=== PATIENT | female | born 1985 | race Caucasian/White ===

== ENCOUNTER 2019-08-03 13:46 | Emergency (ER) | payer OTHER ==
[2019-08-03 14:46] LABS: Urine Blood 3+ (NEG); Urine Glucose NEGATIVE (NEG); Urine Protein NEGATIVE (NEG)
[2019-08-03 15:22] LABS: Absolute Lymphocytes (CBC) 2.2 K/uL (0.7-4.9); Basophils % 0.6 % (0-1.3); Hematocrit 36.5 % (36.0-45.0); Lymphocytes % 28.5 % (15.3-44.8); MPV 6.8 fL (7.6-11.3); RBC Red Blood Cell Count 3.75 M/uL (3.86-4.86)
[2019-08-03] MEDS ORDERED: NA CHLORIDE 0.9% 500 ML ONE (15:31)
[2019-08-03 15:39] LABS: ALT/SGPT 19 U/L (12-78); AST/SGOT 14 U/L (15-37); Albumin 3.2 g/dL (3.4-5.0); Alkaline Phosphatase 67 U/L (45-117); BUN Blood Urea Nitrogen 11 mg/dL (7-18); Bicarbonate 28 mmol/L (21-32); Bilirubin Direct < 0.1 mg/dL (0-0.2); Bilirubin Total 0.2 mg/dL (0.2-1.0); Glucose Level 90 mg/dL (74-106); Lipase 108 U/L (73-393); Potassium 3.9 mmol/L (3.5-5.1); Protein, Total 6.9 g/dL (6.4-8.2); Sodium Level 139 mmol/L (136-145)
--- NOTE | 2019-08-03 18:01 | EDPHYS ---
Physician Documentation [facility] Name: Samara Diego Age: 33 yrs Sex: Female : 1985 Arrival Date: 08/03/2019 Time: 13:49 Bed 12 Private MD: ED Physician Ramon Chacon HPI: 08/03 07:18 This 33 yrs old Female presents to ER via Ambulatory with complaints of kdr Fever, High Blood Pressure, Leg Pain. 07:18 The patient reports fever, that was measured at 101 degrees Fahrenheit. Onset: The kdr symptoms/episode began/occurred yesterday. Modifying factors: Recent medications: acetaminophen. Associated signs and symptoms: Pertinent positives: arthralgias, chills. Severity of symptoms: At their worst the symptoms were mild just prior to arrival, in the emergency department the symptoms are unchanged. The patient has not experienced similar symptoms in the past. The patient has been recently seen by a physician: The patient is five weeks post and had mastitis for which she was treated with Augmentin. Historical: - Allergies: 08/02 14:31 No Known Allergies; ls4 - PMHx: 14:31 None; ls4 - Immunization history:: Adult Immunizations up to date, Flu vaccine is not up to date. - Social history:: Smoking status: Patient reports the use of cigarette tobacco products, smokes one pack cigarettes per day. ROS: 08/03 07:18 Constitutional: Negative for weight loss - has had fever and chillswith genrlized kdr myalgias Eyes: Negative for injury, pain, redness, and discharge, ENT: Negative for injury, pain, and discharge, Neck: Negative for injury, pain, and swelling, Cardiovascular: Negative for chest pain, palpitations, and edema, Respiratory: Negative for shortness of breath, cough, wheezing, and pleuritic chest pain, Abdomen/GI: Negative for abdominal pain, nausea, vomiting, diarrhea, and constipation, Back: Negative for injury and pain, : Negative for injury, bleeding, discharge, and swelling, MS/Extremity: Negative for injury and deformity, Skin: Negative for injury, rash, and discoloration, Neuro: Negative for headache, weakness, numbness, tingling, and seizure activity. Psych: Negative for depression, anxiety, suicide ideation, homicidal ideation, and hallucinations, Allergy/Immunology: Negative for hives, rash, and allergies, Endocrine: Negative for neck swelling, polydipsia, polyuria, polyphagia, and marked weight changes, Hematologic/Lymphatic: Negative for swollen nodes, abnormal bleeding, and unusual bruising. Exam: 07:18 Constitutional: This is a well developed, well nourished patient who is awake, alert, kdr and in no acute distress. Head/Face: Normocephalic, atraumatic. Eyes: Pupils equal round and reactive to light, extra-ocular motions intact. Lids and lashes normal. Conjunctiva and sclera are non-icteric and not injected. Cornea within normal limits. Periorbital areas with no swelling, redness, or edema. Neck: Trachea midline, no thyromegaly or masses palpated, and no cervical lymphadenopathy. Supple, full range of motion without nuchal rigidity, or vertebral point tenderness. No Meningismus. Chest/axilla: Normal chest wall appearance and motion. Nontender with no deformity. No lesions are appreciated. Cardiovascular: Regular rate and rhythm with a normal S1 and S2. No gallops, murmurs, or rubs. Normal PMI, no JVD. No pulse deficits. Respiratory: Lungs have equal breath sounds bilaterally, clear to auscultation and percussion. No rales, rhonchi or wheezes noted. No increased work of breathing, no retractions or nasal flaring. Abdomen/GI: Soft, non-tender, with normal bowel sounds. No distension or tympany. No guarding or rebound. No evidence of tenderness throughout. Back: No spinal tenderness. No costovertebral tenderness. Full range of motion. Skin: Warm, dry with normal turgor. Normal color with no rashes, no lesions, and no evidence of cellulitis. MS/ Extremity: Pulses equal, no cyanosis. Neurovascular intact. Full, normal range of motion. Neuro: Awake and alert, GCS 15, oriented to person, place, time, and situation. Cranial nerves II-XII grossly intact. Motor strength 5/5 in all extremities. Sensory grossly intact. Cerebellar exam normal. Normal gait. Psych: Awake, alert, with orientation to person, place and time. Behavior, mood, and affect are within normal limits. Vital Signs: 08/02 14:26 BP 131 / 78; Pulse 74; Resp 13; Temp 98.1(O); Pulse Ox 100% on R/A; Weight 68.04 kg; ls4 Height 5 ft. 3 in. (160.02 cm); Pain 7/10; 17:00 BP 129 / 78; Pulse 71; Resp 14; Temp 98.2(O); Pulse Ox 100% on R/A; Pain 0/10; ls4 14:26 Body Mass Index 26.57 (68.04 kg, 160.02 cm) ls4 MDM: 17:59 Patient medically screened. [facility] 08/03 07:18 Data reviewed: vital signs, nurses notes, lab test result(s). Counseling: I had a kdr detailed discussion with the patient and/or guardian regarding: the historical points, exam findings, and any diagnostic results supporting the discharge/admit diagnosis, lab results, the need for outpatient follow up. Special discussion: I discussed with the patient/guardian in detail that at this point there is no indication for admission to the hospital. It is understood, however, that if the symptoms persist or worsen the patient needs to return immediately for re-evaluation. 08/02 14:42 Order name: Urine Dipstick--Ancillary (enter results) bd 08/02 14:46 Order name: Basic Metabolic Panel kdr 08/02 14:46 Order name: CBC with Diff kdr 08/02 14:46 Order name: Creatinine for Radiology kdr 08/02 14:46 Order name: Hepatic Function kdr 08/02 14:46 Order name: Lipase kdr 08/02 14:46 Order name: IV Saline Lock; Complete Time: 15:16 kdr 08/02 14:49 Order name: Urine Dipstick-Ancillary; Complete Time: 15:26 EDMS 08/02 15:27 Order name: CBC with Automated Diff; Complete Time: 17:10 EDMS 08/02 15:39 Order name: Creatinine (Radiology Only); Complete Time: 17:10 EDMS 08/02 15:45 Order name: Basic Metabolic Panel; Complete Time: 17:10 EDMS 08/02 15:45 Order name: Liver (Hepatic) Function; Complete Time: 17:10 EDMS 08/02 15:45 Order name: Lipase; Complete Time: 17:10 EDMS 08/02 14:46 Order name: Labs collected and sent; Complete Time: 15:16 kdr Administered Medications: 08/02 15:25 Drug: NS 0.9% 500 ml Route: IV; Rate: bolus; Site: left antecubital; ls4 16:25 Follow up: IV Status: Completed infusion; IV Intake: 500ml ls4 Disposition: 08/03/19 17:59 Discharged to Home. Impression: Viral infection of unspecified site, Fever, unspecified. - Condition is Fair. - Discharge Instructions: Viral Respiratory Infection, [id number], Fever, Adult, [id number]. - Medication Reconciliation Form, Thank You Letter, Work release form form. - Follow up: Private Physician; When: 2 - 3 days; Reason: If symptoms return, Further diagnostic work-up, Recheck today's complaints, Continuance of care, Re-evaluation by your physician. - Problem is new. - Symptoms have improved. Signatures: Dispatcher [employer] EDRamon Doran MD MD kdr Leal, Jahala, RN RN jl7 Vickie Wong RN RN ls4 Corrections: (The following items were deleted from the chart) 14:08 14:06 Allergies: No Known Allergies; [facility] 14:08 14:06 Home Meds: none; [facility] 14:08 14:06 PMHx: None; [place] [id number] 14:08 14:06 PSHx: None; [place] [id number] 14:08 14:06 Immunization history: Adult Immunizations up to date, [place] [id number] 14:08 14:06 Social history: Smoking status: Patient denies any tobacco usage or history of. 7 jl7 18:09 17:59 08/03/2019 17:59 Discharged to Home. Impression: Viral infection of unspecified ls4 site; Fever, unspecified. Condition is Fair. Forms are Work release form, Medication Reconciliation Form, Thank You Letter, Antibiotic Education, Prescription Opioid Use. Follow up: Private Physician; When: 2 - 3 days; Reason: If symptoms return, Further diagnostic work-up, Recheck today's complaints, Continuance of care, Re-evaluation by your physician. Problem is new. Symptoms have improved. kdr
--- NOTE | 2019-08-03 18:01 | ER ---
Nurse's Notes [facility] Name: Samara Diego Age: 33 yrs Sex: Female : 1985 Arrival Date: 08/03/2019 Time: 13:49 Bed 12 Private MD: Diagnosis: Viral infection of unspecified site;Fever, unspecified Presentation: 08/02 14:26 Chief complaint: Patient states: FEVER LAST NIGHT MAX 101.0. BODY ACHES. LEGS HURT AND ls4 SEEM SWOLLEN. HAD MASTITIS AND WAS TREATED WITH AUGMENTIN. 5 WEEKS POST . PT WENT TO [employer] AFTER SIGNING IN AND IS DRINKING [employer]. TOOK TYLENOL AT 1330 TODAY 1000 MG. Coronavirus screen: The patient has NOT traveled to a country currently being monitored by the CDC within the last 14 days. Proceed with normal triage procedures. Ebola Screen: No symptoms or risks identified at this time. Initial Sepsis Screen: Does the patient meet any 2 criteria? No. Patient's initial sepsis screen is negative. Does the patient have a suspected source of infection? No. Patient's initial sepsis screen is negative. Risk Assessment: Do you want to hurt yourself or someone else? Patient reports no desire to harm self or others. 14:26 Method Of Arrival: Ambulatory ls4 14:26 Acuity: MISTY 4 ls4 Triage Assessment: 14:31 General: Appears in no apparent distress. uncomfortable, Behavior is calm, cooperative. ls4 Historical: - Allergies: 14:31 No Known Allergies; ls4 - PMHx: 14:31 None; ls4 - Immunization history:: Adult Immunizations up to date, Flu vaccine is not up to date. - Social history:: Smoking status: Patient reports the use of cigarette tobacco products, smokes one pack cigarettes per day. Screenin:18 Abuse screen: Denies threats or abuse. Denies injuries from another. Nutritional ls4 screening: No deficits noted. Tuberculosis screening: No symptoms or risk factors identified. Fall Risk None identified. Assessment: 14:17 General: Appears in no apparent distress. Behavior is calm, cooperative. Pain: Denies ls4 pain. Neuro: No deficits noted. Cardiovascular: No deficits noted. Respiratory: No deficits noted. GI: No deficits noted. : No deficits noted. Derm: No deficits noted. Musculoskeletal: No deficits noted. 15:00 Reassessment: Patient appears in no apparent distress at this time. Patient and/or ls4 family updated on plan of care and expected duration. Pain level reassessed. Patient is alert, oriented x 3, equal unlabored respirations, skin warm/dry/pink. 16:00 Reassessment: Patient appears in no apparent distress at this time. Patient and/or ls4 family updated on plan of care and expected duration. Pain level reassessed. Patient is alert, oriented x 3, equal unlabored respirations, skin warm/dry/pink. Vital Signs: 14:26 BP 131 / 78; Pulse 74; Resp 13; Temp 98.1(O); Pulse Ox 100% on R/A; Weight 68.04 kg; ls4 Height 5 ft. 3 in. (160.02 cm); Pain 7/10; 17:00 BP 129 / 78; Pulse 71; Resp 14; Temp 98.2(O); Pulse Ox 100% on R/A; Pain 0/10; ls4 14:26 Body Mass Index 26.57 (68.04 kg, 160.02 cm) ls4 ED Course: 14:16 Vickie Wong, RN is Primary Nurse. ls4 14:18 Patient has correct armband on for positive identification. Placed in gown. Bed in low ls4 position. Call light in reach. Side rails up X 1. Warm blanket given. 14:18 Arm band placed on. ls4 14:18 No provider procedures requiring assistance completed. ls4 14:30 Ramon Chacon MD is Attending Physician. kdr 15:16 Urine Dipstick--Ancillary (enter results) Sent. ls4 15:17 Initial lab(s) drawn, Flu and/or RSV swab sent to lab. Inserted saline lock: 20 gauge ls4 in left antecubital area, using aseptic technique. Blood collected. Administered Medications: 15:25 Drug: NS 0.9% 500 ml Route: IV; Rate: bolus; Site: left antecubital; ls4 16:25 Follow up: IV Status: Completed infusion; IV Intake: 500ml ls4 Intake: 16:25 IV: 500ml; Total: 500ml. ls4 Outcome: 17:59 Discharge ordered by . kdr 18:09 Patient left the ED. ls4 18:09 Discharged to home ambulatory. ls4 18:09 Condition: good 18:09 Discharge instructions given to patient, Instructed on discharge instructions, follow up and referral plans. medication usage, Demonstrated understanding of instructions, follow-up care, medications. Signatures: Ramon Chacon MD MD kdr Leal, Jahala RN RN jl7 Vickie Wong RN RN ls4 Mir Urias ag5 Corrections: (The following items were deleted from the chart) 14 14: Chief complaint: Patient states: Sutures to left pinky finger placed 7 days ago [place] [id number] 14:04 Coronavirus screen: The patient has NOT traveled to a country currently being [facility] monitored by the [facility] within the last 14 days. Proceed with normal triage procedures. [facility] 14:04 Ebola Screen: No symptoms or risks identified at this time. [place] [id number] 14 14:04 Initial Sepsis Screen: Does the patient meet any 2 criteria? No. Patient's [facility] initial sepsis screen is negative. Does the patient have a suspected source of infection? No. Patient's initial sepsis screen is negative. [facility] 14:04 Risk Assessment: Do you want to hurt yourself or someone else? Patient reports no [facility] desire to harm self or others. [facility] 14:04 Care prior to arrival: None. [place] [id number] 14 14:04 Onset of symptoms was July 26, 2019 [place] [id number] 14 14:04 Method Of Arrival: Ambulatory [place] [id number] 14:04 BP 114 / 67; Pulse 80bpm; Resp 16bpm; Pulse Ox 99%; Temp 97.4F; Pain 0/10; [place] [id number] 14 14:04 Acuity: MISTY 5 [place] [id number] 14 14:06 Allergies: No Known Allergies; [place] [address] 14:06 Home Meds: none; [place] [address] 14:06 PMHx: None; [place] [address] 14:06 PSHx: None; [place] [address] 14 14:06 Immunization history: Adult Immunizations up to date, [place] [address] 14:06 Social history: Smoking status: Patient denies any tobacco usage or history of. [place] [address] 14:06 General: Appears in no apparent distress. uncomfortable, Behavior is calm, 7 cooperative, appropriate for age, jl7 14:06 Pain: Denies pain. 7 jl7 14:06 LMP 07/21/2019 [facility] jl7 14:06 Arm band placed on right wrist. 7 13:49 Patient arrived in ED. ag5 jl7 14:06 Triage completed. [facility] jl7
[2019-08-03 18:30] VITALS: BP 131/78; TEMP 98.1; O2SAT 100
== END 2019-08-03 18:09 | disposition home or self-care (01) ==
LOC: ER 13:46
DX: B34.9 Viral infection, unspecified (principal); F17.210 Nicotine dependence, cigarettes, uncomplicated
CPT/HCPCS: 85025; 80048; 36415; 80076; 81003; 83690; 96360; 99283; J7040

== ENCOUNTER 2019-08-23 14:14 | Emergency (ER) | payer OTHER ==
--- OUTSIDE RECORDS SUMMARY | 2019-08-23 14:28 | XMS REPORT ---
:1985 [facility] Address [address] [place] [address] Dr. Chowdhury [address] [place] [id number] Care Team Providers Name Role Phone Unavailable Unavailable Unavailable Problems This patient has no known problems. Allergies, Adverse Reactions, Alerts This patient has no known allergies or adverse reactions. Medications This patient has no known medications.
--- OUTSIDE RECORDS SUMMARY | 2019-08-23 14:29 | XMS REPORT | Summary of Care ---
:1985 Author Organization [facility] Address [address] [place] [id number] Care Team Providers Name Role Phone [facility] Provider Encounter Details Date Type Department Care Team Description 06/28/2019 Encounter Allergies No Known Allergiesdocumented as of this encounter (statuses as of 06/28/2019) Medications Medication Sig Dispensed Refills Start Date End Date Status albuterol (VENTOLIN) Inhale 2 Puffs 1 Inhaler 0 10/01/2015 Active 90 mcg/actuation every 4 (four) inhaler hours as needed for Wheezing or Shortness of Breath. buPROPion XL Take 1 tablet by 14 tablet 0 06/21/2019 Active (WELLBUTRIN XL) 150 mouth daily. mg 24 hr tabletIndications: Depression during in third trimester docusate calcium 240 Take 1 capsule by 60 capsule 1 06/28/2019 Active mg mouth once daily as capsuleIndications: needed for 36 weeks gestation Constipation. of , (spontaneous vaginal delivery), Laceration, obstetrical, first degree ibuprofen 600 mg Take 1 tablet by 60 tablet 1 06/28/2019 Active tabletIndications: mouth every 6 (six) 36 weeks gestation hours as needed of , (Pain). Take with (spontaneous vaginal food or milk. delivery), Laceration, obstetrical, first degree Iron Fum & P-FA-Vit Take 1 capsule by 30 capsule 2 06/28/2019 Active B & C No.9 (INTEGRA mouth daily. PLUS) 125 mg iron- 1 mg CapIndications: 36 weeks gestation of , (spontaneous vaginal delivery), Laceration, obstetrical, first degree documented as of this encounter (statuses as of 06/28/2019) Active Problems Problem Noted Date (spontaneous vaginal delivery) 06/27/2019 Single live 06/27/2019 Laceration, obstetrical, minor 06/27/2019 Gestational hypertension 06/27/2019 Smoking 06/27/2019 History of depression 06/27/2019 36 weeks gestation of 06/26/2019 Labor and delivery, indication for care 06/26/2019 Asthma 02/23/2009 CANNABIS ABUSE, EPISODIC 02/23/2009 documented as of this encounter (statuses as of 06/28/2019) Resolved Problems Problem Noted Date Resolved Date Second-degree perineal laceration in 02/24/2009 06/19/2019 Overview: ICD10 Diagnosis Term Tubing Tester Utility SROM (spontaneous rupture of membranes) 02/23/2009 06/19/2019 Supervision of normal first 02/23/2009 06/19/2019 Antepartum anemia 02/23/2009 06/19/2019 Overview: Hgb 9.7 on admit ICD10 Diagnosis Term Tubing Tester Utility documented as of this encounter (statuses as of 06/28/2019) Immunizations Name Administration Dates Next Due HPV9 06/28/2019 Influenza Virus Vaccine 02/25/2009 TDAP (ADACEL) VACCINE 06/19/2019 documented as of this encounter Social History Tobacco Use Types Packs/Day Years Used Date Current Every Day Smoker Cigarettes 0.5 2 Smokeless Tobacco: Never Used Alcohol Use Drinks/Week oz/Week Comments Not Currently not drinking Sex Assigned at Date Recorded Not on file Job Start Date Occupation Industry Not on file Not on file Not on file Travel History Travel Start Travel End No recent travel history available. documented as of this encounter Last Filed Vital Signs Not on filedocumented in this encounter Plan of Treatment Date Type Specialty Care Team Description 07/19/2019 Routine Visit [facility] Brigid Beckett, BRITTANY [address] [place] [id number] Health Maintenance Due Date Last Done Comments PAP SMEAR 10/27/2011 10/26/2008 INFLUENZA VACCINE (#1) 2019 02/25/2009 DTaP,Tdap,and Td Vaccines (2 - Td) 06/19/2029 06/19/2019 PNEUMOCOCCAL 0-64 YEARS COMBINED SERIES Discontinued documented as of this encounter Results Not on filedocumented in this encounter Insurance Payer Benefit Plan / Subscriber ID Effective Dates Phone Address Type Group [facility] xxxxxxxxx 2019-[employer] HEALTH PLAN - [facility] MANAGED MEDICAID documented as of this encounter
--- OUTSIDE RECORDS SUMMARY | 2019-08-23 14:29 | XMS REPORT | Summary of Care ---
:1985 Author Organization [facility] Address [address] [place] [address] Care Team Providers Name Role Phone [facility] Provider Reason for Visit Reason Comments MASTITIS Encounter Details Date Type Department Care Team Description 07/05/2019 Routine [facility] SujitBrigid, PRODUCT RESPONSIBILITY LIAISON Nonpurulent Visit [facility] mastitis, [facility] Clinics [place], [place] (Primary [address] [id number] [address], 7th floor [phone] [place] [address] Allergies No Known Allergiesdocumented as of this encounter (statuses as of 07/05/2019) Medications Medication Sig Dispensed Refills Start Date [...] trimester docusate calcium 240 Take 1 capsule 60 capsule 1 06/28/2019 Active mg by mouth once capsuleIndications: daily as needed 36 weeks gestation of for , Constipation. (spontaneous vaginal delivery), Laceration, obstetrical, first degree ibuprofen 600 mg Take 1 tablet by 60 tablet 1 06/28/2019 Active tabletIndications: 36 mouth every 6 weeks gestation of (six) hours as , needed (Pain). (spontaneous vaginal Take with food delivery), or milk. Laceration, obstetrical, first degree Iron Fum & P-FA-Vit B Take 1 capsule 30 capsule 2 06/28/2019 Active & C No.9 (INTEGRA by mouth daily. PLUS) 125 mg iron- 1 mg CapIndications: 36 weeks gestation of , (spontaneous vaginal delivery), Laceration, obstetrical, first degree dicloxacillin 250 mg Take 2 capsules 56 capsule 0 07/01/2019 07/08/2019 Active capsuleIndications: by mouth 4 Nonpurulent mastitis, (four) times daily for 7 days. amoxicillin-clavulana Take 1 tablet by 20 tablet 0 07/05/2019 07/15/2019 Active te (AUGMENTIN) mouth 2 (two) 875-125 mg per times daily for tabletIndications: 10 days. Nonpurulent mastitis, documented as of this encounter (statuses as of 07/05/2019) Active Problems Problem Noted Date (spontaneous vaginal delivery) 06/27/2019 Single live 06/27/2019 Laceration, obstetrical, minor 06/27/2019 Gestational hypertension 06/27/2019 Smoking 06/27/2019 History of depression 06/27/2019 36 weeks gestation of 06/26/2019 Labor and delivery, indication for care 06/26/2019 Asthma 02/23/2009 CANNABIS ABUSE, EPISODIC 02/23/2009 documented as of this encounter (statuses as of 07/05/2019) Resolved Problems Problem Noted Date Resolved Date Second-degree perineal laceration in 02/24/2009 06/19/2019 Overview: ICD10 Diagnosis Term Optical Worker Utility SROM (spontaneous rupture of membranes) 02/23/2009 06/19/2019 Supervision of normal first 02/23/2009 06/19/2019 Antepartum anemia 02/23/2009 06/19/2019 Overview: Hgb 9.7 on admit ICD10 Diagnosis Term Optical Worker Utility documented as of this encounter (statuses as of 07/05/2019) Immunizations Name Administration Dates Next Due HPV9 [...] of this encounter Last Filed Vital Signs Vital Sign Reading Time Taken Comments Blood Pressure 120/72 07/05/2019 12:58 PM IMPLEMENTATION ADVISOR Pulse 98 07/05/2019 12:58 PM IMPLEMENTATION ADVISOR Temperature 36.8 C (98.3 F) 07/05/2019 12:58 PM IMPLEMENTATION ADVISOR Respiratory Rate 18 07/05/2019 12:58 PM IMPLEMENTATION ADVISOR Oxygen Saturation - - Inhaled Oxygen Concentration - - Weight 68.2 kg (150 lb 4 oz) 07/05/2019 12:58 PM IMPLEMENTATION ADVISOR Height 165.1 cm (5' 5") 07/05/2019 12:58 PM IMPLEMENTATION ADVISOR Body Mass Index 25 07/05/2019 12:58 PM IMPLEMENTATION ADVISOR documented in this encounter Progress Notes Brigid Beckett, BRITTANY - 07/05/2019 12:45 PM CST Chief complaint: Chief Complaint Patient presents with MASTITIS HPI Samara Diego presents today with complaints of mastitis. She reports she went to the hospital a few days ago with the same complaint, and was not started on antibiotics. She has pumped, as she was instructed, and her breasts no longer feel engorged. She does not have a fever upon presentation,but states that she has been waking up at night with night sweats, where her bed is completely soaked. Histories OB History Para Term AB Living 2 2 1 1 2 SAB TAB Ectopic Multiple Live Births 0 2 # Outcome Date GA Lbr Edwardo/2nd Weight Sex Delivery Anes PTL Lv 2 06/26/19 36w5d 4 lb 14.7 oz (2.23 kg) M NORMAL SPONT EPI Y JOHANA 1 Term 2008 37w0d 6 lb 15 oz (3.147 kg) M NORMAL SPONT JOHANA Past Medical History: Diagnosis Date Anemia Asthma as a child Gestational hypertension 06/27/2019 History of placement of chest tube Trauma as a child Family History Problem Relation Age of Onset Other - see comments Mother HIV Other - see comments Father HIV Family Status Relation Name Status Mo (Not Specified) Fa (Not Specified) No past surgical history on file. Social History Socioeconomic History Marital status: Single Spouse name: Not on file Number of children: Not on file Years of education: Not on file Highest education level: Not on file Occupational History Not on file Social Needs Financial resource strain: Not on file Food insecurity: Worry: Not on file Inability: Not on file Transportation needs: Medical: Not on file Non-medical: Not on file Tobacco Use Smoking status: Current Every Day Smoker Packs/day: 0.50 Years: 2.00 Pack years: 1.00 Types: Cigarettes Smokeless tobacco: Never Used Substance and Sexual Activity Alcohol use: Not Currently Comment: not drinking Drug use: Yes Types: Marijuana Comment: quit when she found out she was Sexual activity: Yes Partners: Female Lifestyle Physical activity: Days per week: Not on file Minutes per session: Not on file Stress: Not on file Relationships Social connections: Talks on phone: Not on file Gets together: Not on file Attends yazidi service: Not on file Active member of club or organization: Not on file Attends meetings of clubs or organizations: Not on file Relationship status: Not on file Intimate partner violence: Fear of current or ex partner: Not on file Emotionally abused: Not on file Physically abused: Not on file Forced sexual activity: Not on file Other Topics Concern Not on file Social History Narrative Not on file Social History Substance and Sexual Activity Sexual Activity Yes Partners: Female Labs I have reviewed the patient's labs. Radiology No new radiology. Allergies Samara has No Known Allergies. Medications Samara has a current medication list which includes the following prescription( s): amoxicillin-clavulanate, dicloxacillin, docusate calcium, ibuprofen, iron fum & p-fa-vit b & c no.9, bupropion xl, and albuterol. Review of Systems Constitutional: Negative. HENT: Negative. Eyes: Negative. Respiratory: Negative. Breasts: Negative. Cardiovascular: Negative. Gastrointestinal: Negative. Genitourinary: Negative. Musculoskeletal: Negative. Skin: Negative. Neurological: Negative. Psychiatric/Behavioral: Negative. Endocrine: Endocrine negative BP 120/72 (BP Location: Right arm, Patient Position: Sitting, BP CUFF SIZE: Adult Medium) | Pulse 98 | Temp 36.8 C (98.3 F) (Oral) | Resp 18 | Ht 5 ' 5" (1.651 m) | Wt 150 lb 4 oz (68.2 kg) | LMP 12/22/2018 (Approximate) | BMI 25.00 kg/m Pregravid BMI: 28.5 Physical Exam Vitals reviewed. Abdominal: Abdomen is soft. No tenderness present. Neuro/Psychiatric: She has a normal mood and affect. Skin: Skin normal. Breast: Overall erythema Uterus: Nontender Assessment/Plan Nonpurulent mastitis, (primary encounter diagnosis) Comment: will treat with antibiotics. Instructed patient to return if no improvement within a coupleof days, any open areas on breast, or worsening symptoms. Instructed to finish full course of antibiotics. Plan: amoxicillin-clavulanate (AUGMENTIN) 875-125 mg per tablet Return to clinic in 2 weeks. Reviewed patient instructions and provided printed copy. This visit did not involve counseling and coordination that comprised more than 50% of the visit time. BRITTANY Morgan documented in this encounter Plan of Treatment Date Type Specialty Care Team Description 07/19/2019 Routine Visit OB Satellites Brigid Beckett FNP [address] [place] [address] Health Maintenance Due Date Last Done Comments PAP SMEAR 10/27/2011 10/26/2008 INFLUENZA VACCINE (#1) 2019 02/25/2009 DTaP,Tdap,and Td Vaccines (2 - Td) 06/19/2029 06/19/2019 PNEUMOCOCCAL 0-64 YEARS COMBINED SERIES Discontinued documented as of this encounter Results Not on filedocumented in this encounter Visit Diagnoses Diagnosis Nonpurulent mastitis, - Primary documented in this encounter Insurance Payer Benefit Plan / Subscriber ID Effective Dates Phone Address Type Group [facility] xxxxxxxxx 2019-Presen Medicaid HEALTH PLAN - [employer] MANAGED MEDICAID (Home) [place] [address] documented as of this encounter
--- OUTSIDE RECORDS SUMMARY | 2019-08-23 14:29 | XMS REPORT | Summary of Care ---
:1985 Author Organization [facility] - Health Address [address] [place] [address] Care Team Providers Name Role Phone [facility] Provider Encounter Details Date Type Department Care Team Description 06/26/2019 Orders Only [facility] Doctor Unassigned, No [address] [facility] [place] [address] [address] [place] [address] Allergies No Known Allergiesdocumented as of this encounter (statuses as of 06/26/2019) Medications Medication Sig Dispensed Refills Start Date End Date Status albuterol (VENTOLIN) Inhale 2 Puffs 1 Inhaler 0 10/01/2015 Active 90 mcg/actuation every 4 (four) inhaler hours as needed for Wheezing or Shortness of Breath. buPROPion XL Take 1 tablet by 14 tablet 0 06/21/2019 Active (WELLBUTRIN XL) 150 mouth daily. mg 24 hr tabletIndications: Depression during in third trimester documented as of this encounter (statuses as of 06/26/2019) Active Problems Problem Noted Date Asthma 02/23/2009 CANNABIS ABUSE, EPISODIC 02/23/2009 Estimated Date of Delivery Comments Yes 07/19/2019 Based on Ultrasound documented as of this encounter (statuses as of 06/26/2019) Resolved Problems Problem Noted Date Resolved Date Second-degree perineal laceration in 02/24/2009 06/19/2019 Overview: ICD10 Diagnosis Term Master Esthetician Utility SROM (spontaneous rupture of membranes) 02/23/2009 06/19/2019 Supervision of normal first 02/23/2009 06/19/2019 Antepartum anemia 02/23/2009 06/19/2019 Overview: Hgb 9.7 on admit ICD10 Diagnosis Term Master Esthetician Utility documented as of this encounter (statuses as of 06/26/2019) Immunizations Name Administration Dates Next Due Influenza Virus Vaccine 02/25/2009 TDAP (ADACEL) VACCINE 06/19/2019 documented as of this encounter Social History Tobacco Use Types Packs/Day Years Used Date Current Every Day Smoker Cigarettes 0.5 2 Smokeless Tobacco: Never Used Alcohol Use Drinks/Week oz/Week Comments Not Currently not drinking Estimated Date of Delivery Comments Yes 07/19/2019 Based on Ultrasound Sex Assigned at Date Recorded Not on file Job Start Date Occupation Industry Not on file Not on file Not on file Travel History Travel Start Travel End No recent travel history available. documented as of this encounter Last Filed Vital Signs Not on filedocumented in this encounter Plan of Treatment Date Type Specialty Care Team Description 07/03/2019 Routine Visit OB Satellites Brigid Beckett, BRITTANY [address] [place] [address] [phone] 07/10/2019 Routine Visit OB [facility] Alaina Ramirez PA-C [address] [place] [address] [phone] 07/17/2019 Routine Visit OB [facility] Alaina Ramirez PA-C [address] [place] [address] [phone] Health Maintenance Due Date Last Done Comments PAP SMEAR 10/27/2011 10/26/2008 INFLUENZA VACCINE (#1) 2019 02/25/2009 DTaP,Tdap,and Td Vaccines (2 - Td) 06/19/2029 06/19/2019 PNEUMOCOCCAL 0-64 YEARS COMBINED SERIES Discontinued documented as of this encounter Procedures Procedure Name Priority Date/Time Associated Diagnosis Comments CONSENT TO CONTACT Routine 06/26/2019 4:30 PM Results for this FOR 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 documented in this encounter Results CONSENT TO CONTACT FOR VOLUNTARY RESEARCH (06/26/2019 4:30 PM CONCRETE PAVING MACHINE OPERATOR) Consent To Contact For Voluntary Yes HIM Research Specimen Performing Organization Address City/State/Zipcode Phone Number HIM documented in this encounter Insurance Payer Benefit Plan / Subscriber ID Effective Dates Phone Address Type Group [place] [facility] [place] [facility] xxxxxxxxx 2019-[employer] Medicaid HEALTH PLAN - [facility] MANAGED MEDICAID documented as of this encounter
--- OUTSIDE RECORDS SUMMARY | 2019-08-23 14:29 | XMS REPORT | Continuity of Care Document ---
:1985 Author Organization [facility] Address [address] [place], [place] [id number] Phone Care Team Providers Name Role Phone Bhavani Weiner MD Unavailable Unavailable Allergies, Adverse Reactions, Alerts Substance Reaction Status DIPHENHYDRAMINE HCL Active Medications Medication Instructions Dosage Effective Dates Status Comments (start - stop) prednisone 20 mg take 3 tablet by - Active [Pat Resp=0 tablet oral route every pct;] day with a large meal x 5 days Flagyl 500 mg take 1 tablet by - No Longer [Pat Resp=0 tablet oral route every Active pct;] 12 hours x 7 days Problems Condition Effective Dates (start - stop) Clinical Status Comments No information Procedures Procedure Date Nominal Fee Established Patient Office Visit-Level Three Results Test Name Date and Time Measure Units Reference Range Abnormal Flag Status Comments No information Advance Directives Directive Yes / No Effective Date File Name No information Encounters Encounter Practice Location Reason(s) Diagnoses Date Provider Providers Description For Visit Copied on Encounter Established [facility] LUPILLO [place] Body mass index Regine Referring Patient Health & [facility] (chief (BMI) 25.0-25.9, 5-201 Bhavani. Provider : Office Wellness, Health & complaint) adultAllergic 9 [address] Bhavani Visit-Level PO Box Wellness Preventive contact dermatitis, Sam Weiner, Three [address], [place] exam unspecified cause [address] [place], (chief [address], Sam DANG, complaint) [address], Ham[place]ah [id number] [place], [place], [address], tel:+ [phone]. [place] [id number] tel:+ [place], [place], [id number]. tel:[phone] [place] Mar- [facility] Health & Coast[facility] 7- Bhavani. Wellness, Health & [address] Wellness [place] [address], [place] Him[place] Garibay, [facility], [place], [address], [id number] [place] , [place], [place], tel:[phone]. [id number] tel:[phone] [place] Encntr for general Jul- Ripsin Referring Health & [facility] adult medical exam - Bhavani. Provider: Wellness, Health & w/o abnormal 9 [address] Bhavani PO Box Wellness findings [place] Regine, [address], [address] [place], [facility], [place], [address], [place] [id number] [facility] , [place], [place], [address], tel:+ [phone]. [place] [id number] tel:+40 [place], [place], [id number]. tel:[phone] [place] Encounter for dental Mar-0 Torres Referring Health & [facility] exam and cleaning Bang. Provider: Wellness, Health & w/o abnormal 9 [address] Bang PO Box Wellness findings [place] Melissa, [address], [place] [address] [place], [place], [place], [address], Ham[place] [id number] [place], [place], [address], tel:[phone]. [place] [id number] tel:+140 [place], [place], [id number]. tel:[phone] [place] Body mass index Mar-0 Ogundiran Referring Health & [facility] (BMI) 26.0-26.9, Casandra. Provider: Wellness, Health & adultOtitis externa 9 [address] Casandra PO Box Wellness of left ear [place] Anand, [address], [place] [address] [place], [facility], [place], [address], Ham[place]ah [id number] [place], [place], [address], tel:[phone]. [place] [id number] tel: [place], [place], [phone] [id number]. tel:[phone] [place] Major depressive Jun-0 Health & Coast[place] affective disorder, Wellness, Health & single episode, 4 [address] Wellness unspecified [address]39, [place] degreeInsomnia, [place], Other [place], [id number] , [place] tel: [phone] [place] Posttraumatic stress Feb- Health & [place] disorderGeneralized Wellness, Health & anxiety 3 PO Box Wellness disorderINFLUENZA 939, La VACCINATION [place], [place], [id number] , [place] tel: [phone] [place] Major depressive Dec- Health & [place] affective disorder, Wellness, Health & single episode, 3 [address] Box Wellness unspecified 939, [place] degreePanic disorder [place], without [place], agoraphobiaPosttraum [id number] atic stress disorder , [place] tel: [phone] [place] Major depressive Nov- Health & [place] affective disorder, Wellness, Health & single episode, 3 PO Box Wellness unspecified [address]39, [place] degreePanic disorder [place], without [place], agoraphobiaPosttraum [id number] atic stress , [place] disorderGeneralized tel: anxiety disorder [phone] [place] Dental examination Nov- Health & [place] Wellness, Health & 3 [address] Wellness [address], [place], [place], [id number] , [place] tel: [phone] [place] Dental examination Nov- Health & [place] Wellness, Health & 3 [address] Wellness [address], [place], [place], [id number] , [place] tel: [phone] [place] Dental examination Nov- Torres Referring Health & [place] Bang. Provider: Wellness, Health & 3 [address] PO Box Wellness [place], [address], [place] [address] [place], [facility], [place], [address], [place] [id number] [facility] , [facility], [place], [address], tel: [phone]. [place] [id number] tel: [place], [place], [id number]. tel:[phone] [facility] Gynecological Aug-0 Health & Coast[place] ExaminationScreening Wellness, Health & examination for 3 PO Box Wellness venereal 939, [place] diseaseScreening for [place], other and [place], unspecified [id number] endocrine, , nutritional, tel: metabolic, and [phone] immunity disordersUnspecified contraceptive management [facility] Dental examination Jul- Torres Referring Health & [place] Bang. Provider: Wellness, Health & 3 [address] PO Box Wellness [place], [address], [place] [address] [address] [place], [place], [place], [address], [place] [id number] [place] [address] , [facility], [place], [address], tel: [phone]. [place] [id number] tel: [place], [place], [id number]. tel:[phone] Family History Family Member Diagnosis Age At Onset Father HIV+ (contracted from ) Mother HIV+ (blood transfusion) Mother Sarcoidosis Immunizations Vaccine Date Status Comments Flu Private split virus, administered Source: New Immunization preservative free 3yr & Older Record Payers Payer name Insurance type Covered constitution party ID Authorization(s) No information Social History Type Description Quantity Date Captured Comments Alcohol Use Details No Caffeine Use Details coffee and soda 3 cups per day Tobacco Use Status Smoking Status Current every day smoker Smoking Tobacco Use Cigarette: Years Used 8 Cigarette: 0.5 Packs per day, Pack Year: 4 Details Sex Female Vital Signs Date / Height Weight BMI Pulse Blood Temperature Respiratory Body Head BMI Pulse Inhaled Time: Rate Pressure Rate Surface Circumference percentile Ox Ox Area 65.00 150.40 25.0 70 120/70 97.1 F 18 /min in lbs 3 /min mm[Hg] meter(2) 2:50 kg/m PM eter (2) Chief Complaint And Reason For Visit Most recent encounter only, dated '09/05/2018 14:40'. Hives (chief complaint). Description: Pertinent negatives include diarrhea, fatigue, fever, headache, joint symptoms, pain, sore throat and vomiting. Comments: had some fish mixed with shrimp yesterday and now has an itchy rash over most of her trunk and arms..Preventive exam (chief complaint). Description: Currently : no. : 1. Parity: Term: 1.Livin. The patient states she uses condoms, male for control. Pertinent negatives include abnormal vaginal bleeding. The patient does use tobacco. Tobacco cessation has been discussed. She has been exposed to passive smoke. She has not been exposed to passive vaping. She does not drink alcohol. Reason For Referral Reason For Referral No information Plan Of Treatment Date Type Action Status Goal Lifestyle education regarding diet completed Goal Dietary management education, guidance, and completed counseling Appointment Samara Diego BOOKED History Of Present Illness Encounter Date Complaint History Of Present Illness Hives Pertinent negatives include diarrhea, fatigue, fever, headache, joint symptoms, pain, sore throat and vomiting. Comments: had some fish mixed with shrimp yesterday and now has an itchy rash over most of her trunk and arms.. Preventive exam Currently : no. : 1. Parity: Term : 1. Livin. The patient states she uses condoms, male for control. Pertinent negatives include abnormal vaginal bleeding. The patient does use tobacco. Tobacco cessation has been discussed. She has been exposed to passive smoke. She has not been exposed to passive vaping. She does not drink alcohol. Functional Status Date Functional Assessment No information Medications Administered Medication Instructions Dosage Effective Dates (start - stop) Status Comments No information Instructions Date Instruction Additional Information Lifestyle education regarding diet Related to Body mass index ( BMI) 25.0-25.9, adult Giving encouragement to exercise Related to Body mass index (BMI) 25.0-25.9, adult Dietary management education, Related to Body mass index (BMI) guidance, and counseling 26.0-26.9, adult Assessments Type Assessment Date assessment Body mass index (BMI) 25.0-25.9, adult assessment Allergic contact dermatitis, unspecified cause impression this could be an allergic reaction to shrimp. difficult to tell based on presentation. we agreed on oral prednisone 60 daily x 5 days with food. Goals Health Concern Goal Type Priority Status Date No information Medical Equipment Description Device [place] Device Identifier Effective Dates (start - stop ) Status No information Mental Status Date Cognitive Assessment Orientation - Oriented to time, place, person, situation. Health Concerns Observation Date No information Concern Status Date No information
--- OUTSIDE RECORDS SUMMARY | 2019-08-23 14:29 | XMS REPORT | Summary of Care ---
:1985 Author Organization [facility] Address [address] [place] [address] Care Team Providers Name Role Phone [facility] Provider Reason for Visit Reason Comments Rx Concern/Question Encounter Details Date Type Department Care Team Description 06/21/2019 Telephone [facility] Brigid Beckett FNP Rx Concern/Question [address], [phone] [facility] floor [phone] [place] [address] Allergies No Known Allergiesdocumented as of this encounter (statuses as of 07/03/2019) Medications Medication Sig Dispensed Refills Start Date End Date Status albuterol (VENTOLIN) Inhale 2 Puffs 1 Inhaler 0 10/01/2015 Active 90 mcg/actuation every 4 (four) inhaler hours as needed for Wheezing or Shortness of Breath. documented as of this encounter (statuses as of 07/03/2019) Active Problems Problem Noted Date (spontaneous vaginal delivery) 06/27/2019 Single live 06/27/2019 Laceration, obstetrical, minor 06/27/2019 Gestational hypertension 06/27/2019 Smoking 06/27/2019 History of depression 06/27/2019 36 weeks gestation of 06/26/2019 Labor and delivery, indication for care 06/26/2019 Asthma 02/23/2009 CANNABIS ABUSE, EPISODIC 02/23/2009 Comments Yes documented as of this encounter (statuses as of 07/03/2019) Resolved Problems Problem Noted Date Resolved Date Second-degree perineal laceration in 02/24/2009 06/19/2019 Overview: ICD10 Diagnosis Term Property Administrator Utility SROM (spontaneous rupture of membranes) 02/23/2009 06/19/2019 Supervision of normal first 02/23/2009 06/19/2019 Antepartum anemia 02/23/2009 06/19/2019 Overview: Hgb 9.7 on admit ICD10 Diagnosis Term Property Administrator Utility documented as of this encounter (statuses as of 07/03/2019) Immunizations Name Administration Dates Next Due Influenza Virus Vaccine 02/25/2009 TDAP (ADACEL) VACCINE 06/19/2019 documented as of this encounter Social History Tobacco Use Types Packs/Day Years Used Date Current Every Day Smoker Cigarettes 0.5 2 Smokeless Tobacco: Never Used Alcohol Use Drinks/Week oz/Week Comments Not Currently not drinking Comments Yes Sex Assigned at Date Recorded Not on [...] Visit [facility] Brigid Beckett, BRITTANY [address] [place] [phone] Health Maintenance Due Date Last Done Comments PAP SMEAR 10/27/2011 10/26/2008 INFLUENZA VACCINE (#1) 2019 02/25/2009 DTaP,Tdap,and Td Vaccines (2 - Td) 06/19/2029 06/19/2019 PNEUMOCOCCAL 0-64 YEARS COMBINED SERIES Discontinued documented as of this encounter Results Not on filedocumented in this encounter Insurance Payer Benefit Plan / Subscriber ID Effective Dates Phone Address Type Group [place] [facility]DRENS xxxxxxxxx 2019-Presen Medicaid HEALTH PLAN - [employer] MANAGED MEDICAID documented as of this encounter
--- OUTSIDE RECORDS SUMMARY | 2019-08-23 14:29 | XMS REPORT | Summary of Care ---
:1985 Author Organization [facility] Address [address] [place] [id number] Care Team Providers Name Role Phone [facility] Provider Reason for Visit Reason Comments ROUTINE VISIT Encounter Details Date Type Department Care Team Description 06/19/2019 Routine [facility] Alaina Ramirez, High-risk in third trimester (Primary Dx); Visit [facility] Late care; [address] Smoking (tobacco) complicating , unspecified trimester; [address] [employer]. Depression during in third trimester [address], [address] [place] [phone] Allergies No Known Allergiesdocumented as of this encounter (statuses as of 06/21/2019) Medications Medication Sig Dispensed Refills Start Date End Date Status albuterol Inhale 2 Puffs 1 Inhaler 0 10/01/2015 Active (VENTOLIN) 90 every 4 (four) mcg/actuation hours as needed inhaler for Wheezing or Shortness of Breath. buPROPion XL Take 1 tablet 14 tablet 0 06/21/2019 Active (WELLBUTRIN XL) by mouth daily. 150 mg 24 hr tabletIndication s: Depression during in third trimester buPROPion XL Take 1 tablet 14 tablet 0 06/21/2019 Discontinued (WELLBUTRIN XL) by mouth daily. 0 (Duplicate) 150 mg 24 hr tabletIndication s: Depression during in third trimester documented as of this encounter (statuses as of 06/21/2019) Active Problems Problem Noted Date Asthma 02/23/2009 CANNABIS ABUSE, EPISODIC 02/23/2009 Estimated Date of Delivery Comments Yes 07/19/2019 Based on Ultrasound documented as of this encounter (statuses as of 06/21/2019) Resolved Problems Problem Noted Date Resolved Date Second-degree perineal laceration in 02/24/2009 06/19/2019 Overview: ICD10 Diagnosis Term Dietetic Aide Utility SROM (spontaneous rupture of membranes) 02/23/2009 06/19/2019 Supervision of normal first 02/23/2009 06/19/2019 Antepartum anemia 02/23/2009 06/19/2019 Overview: Hgb 9.7 on admit ICD10 Diagnosis Term Dietetic Aide Utility documented as of this encounter (statuses as of 06/21/2019) Immunizations Name Administration Dates Next Due Influenza [...] Sign Reading Time Taken Comments Blood Pressure 130/80 06/19/2019 4:32 PM HONE OPERATOR Pulse 85 06/19/2019 4:32 PM HONE OPERATOR Temperature 36.6 C (97.9 F) 06/19/2019 4:32 PM HONE OPERATOR Respiratory Rate 19 06/19/2019 4:32 PM HONE OPERATOR Oxygen Saturation - - Inhaled Oxygen Concentration - - Weight 79.8 kg (176 lb) 06/19/2019 4:32 PM HONE OPERATOR Height 165.1 cm (5' 5") 06/19/2019 4:32 PM HONE OPERATOR Body Mass Index 29.29 06/19/2019 4:32 PM HONE OPERATOR documented in this encounter Progress Notes Alaina Ramirez PA-C - 06/19/2019 4:15 PM CST Chief complaint: Chief Complaint Patient presents with ROUTINE VISIT HPI CC: Follow Up Visit Samara Diego is a 33 year old, , /White female. Patient' s last menstrual period was 12/22/2018 (approximate). She is 35w5d with an intrauterine . Her estimated date of delivery is 07/19/2019, by Ultrasound. She has no complaints today. She reports +FM. She denies pain, regular or significant contractions, LOF, or VB. The patient has no reports of headache, visual changes, epigastric pain, significant peripheral or facial edema or shortness of breath. Patient reports that she "can't get out of bed" and that she thinks she "needs to be restarted on depression medication". Previously on depression medication 2 years ago, does not remember name. PHQ 9 score 15. Denies SI/HI. Patient reports that she thinks she has a hemorrhoid. Reports no pain or irritation, blood in stool. Histories OB History Para Term AB Living 2 1 1 SAB TAB Ectopic Multiple Live Births # Outcome Date GA Lbr Edwardo/2nd Weight Sex Delivery Anes PTL Lv 2 Current 1 Term 2008 37w0d 6 lb 15 oz (3.147 kg) M NORMAL SPONT Past Medical History: Diagnosis Date Anemia Asthma as a child History of placement of chest tube Trauma as a child Family History Problem Relation Age of Onset Other - see comments Mother HIV Other - see comments Father HIV Family Status Relation Name Status Mo (Not Specified) Fa (Not Specified) No past surgical history on file. Social History Socioeconomic History Marital status: Spouse name: Not on file Number of [...] file Gets together: Not on file Attends jewish service: Not on file Active member of [...] I have reviewed the patient's labs. Radiology I have reviewed the patient's radiology. . Allergies Samara has No Known Allergies. Medications Samara has a current medication list which includes the following prescription( s): albuterol. Review of Systems Constitutional: Negative. HENT: Negative for facial swelling. Eyes: Negative for visual disturbance. Respiratory: Negative for shortness of breath. Cardiovascular: Negative for leg swelling. Gastrointestinal: Negative for abdominal pain, constipation, diarrhea, nausea and vomiting. Genitourinary: Negative. Skin: Negative. Neurological: Negative for headaches. Psychiatric/Behavioral: Negative for dysphoric mood and suicidal ideas. Endocrine: Endocrine negative BP 130/80 (BP Location: Right arm, Patient Position: Sitting, BP CUFF SIZE: Adult Medium) | Pulse 85 | Temp 36.6 C (97.9 F) (Oral) | Resp 19 | Ht 5 ' 5" (1.651 m) | Wt 176 lb (79.8 kg) | LMP 12/22/2018 (Approximate) | BMI 29.29 kg/m Pregravid BMI: 28.5 Physical Exam Vitals reviewed. Constitutional: She is oriented to person, place, and time. Cardiovascular: No peripheral edema present. Pulmonary/Chest: Normal inspiratory effort. Abdominal: Abdomen is soft. Neuro/Psychiatric: She has a normal mood and affect. She is oriented to person, place, and time. Skin: Skin normal. Uterus: Soft, gravid, non-tender Assessment/Plan High-risk in third trimester (primary encounter diagnosis) Comment: 35w5d IUP - routine education and warnings reviewed - normal vs abnormal discomforts of reviewed -Today we discussed kick counts. Monitor movement throughout the day. If you notice a decrease or change in movement, lie down, have a snack, and monitor your baby's movement. ACOG states "a healthy baby should have 10 movements in less than 2 hours. Most babies will take less than 30 minutes". Call or proceed to hospital for evaluation if you notice less than this. Plan: TDAP (ADACEL) IMMUNIZATION -cbc/gbs NOV Late care Comment: late to care at 30 wks Plan: resume normal care Smoking (tobacco) complicating , unspecified trimester Comment: 1/2 ppd, trying to quit Plan: cessation, wellbutrin Depression during in third trimester Comment: Patient reports that she "can't get out of bed" and that she thinks she "needs to be restarted on depression medication. Previously on depression medication 2 years ago, does not remember name. PHQ 9 score 15. Denies SI/HI. Plan: -wellbutrin -Patient was instructed to call clinic with any question, concern, and to call 911 or go to the nearest ER if patient has suicidal ideation, homicidal ideation , or experiences a severe deterioration in condition threatening safety. Return to clinic in 1 week. Reviewed patient instructions and provided printed copy. This visit did not involve counseling and coordination that comprised more than 50% of the visit time. Alaina Ramirez PA-C 06/19/2019 5:03 PM documented in this encounter Plan of Treatment Date Type Specialty Care Team Description 06/26/2019 Routine Visit OB [facility] Brigid Beckett, [address] [phone] 07/03/2019 Routine Visit OB [facility] Brigid Beckett, [address] [phone] 07/10/2019 Routine Visit OB Alaina Ross PA-C [address] [place] [address]. [place] [address] [phone] 07/17/2019 Routine Visit [facility] Alaina Ramirez PA-C [address] [place] [address]. [place] [phone] Health Maintenance Due Date Last Done Comments PAP SMEAR 10/27/2011 10/26/2008 INFLUENZA VACCINE (#1) 2019 02/25/2009 DTaP,Tdap,and Td Vaccines (2 - Td) 06/19/2029 06/19/2019 PNEUMOCOCCAL 0-64 YEARS COMBINED SERIES Discontinued documented as of this encounter Procedures Procedure Name Priority Date/Time Associated Diagnosis Comments TDAP (ADACEL) Routine 06/19/2019 5:00 PM High-risk in IMMUNIZATION HONE OPERATOR third trimester documented in this encounter Results Not on filedocumented in this encounter Visit Diagnoses Diagnosis High-risk in third trimester - Primary Late care Insufficient care Smoking (tobacco) complicating , unspecified trimester Depression during in third trimester documented in this encounter Insurance Payer Benefit Plan / Subscriber ID Effective Dates Phone Address Type Group [facility] x[facility] 2019-Presen Medicaid HEALTH PLAN - HEALTH MANAGED MEDICAID (Home) [place] [address] documented as of this encounter
--- OUTSIDE RECORDS SUMMARY | 2019-08-23 14:30 | XMS REPORT | Summary of Care ---
:1985 Author Organization [facility] Address [address] [place] [address] Care Team Providers Name Role Phone [facility] Primary [facility] Provider Reason for Visit Reason Comments ROUTINE VISIT Encounter Details Date Type Department Care Team Description 06/26/2019 Routine [facility] Brigid Beckett FNP High-risk in third trimester (Primary Dx); Visit [place] [address] [facility]; [facility] Smoking (tobacco) complicating , unspecified trimester; [address] [place], [place] Depression during in third trimester; [address] [phone] BMI 29.0-29.9,adult [place], [place] [phone] [address] [phone] Allergies No Known Allergiesdocumented as of this encounter (statuses as of 06/26/2019) Medications Medication Sig Dispensed Refills Start Date End Date Status albuterol Inhale 2 Puffs 1 Inhaler 0 10/01/2015 Suspended (VENTOLIN) 90 every 4 (four) mcg/actuation hours as needed inhaler for Wheezing or Shortness of Breath. Additional information buPROPion XL (WELLBUTRIN XL) Take 1 tablet by 14 tablet 0 06/21/2019 Suspended 150 mg 24 hr tabletIndications: mouth daily. Depression during in third trimester Additional information documented as of this encounter (statuses as of 06/26/2019) Active Problems Problem Noted Date Asthma 02/23/2009 CANNABIS ABUSE, EPISODIC 02/23/2009 Estimated Date of Delivery Comments Yes 07/19/2019 Based on Ultrasound documented as of this encounter (statuses as of 06/26/2019) Resolved Problems Problem Noted Date Resolved Date Second-degree perineal laceration in 02/24/2009 06/19/2019 Overview: ICD10 Diagnosis Term Fisher Line Utility SROM (spontaneous rupture of membranes) 02/23/2009 06/19/2019 Supervision of normal first 02/23/2009 06/19/2019 Antepartum anemia 02/23/2009 06/19/2019 Overview: Hgb 9.7 on admit ICD10 Diagnosis Term Fisher Line Utility documented as of this encounter (statuses [...] Sign Reading Time Taken Comments Blood Pressure 130/70 06/26/2019 4:29 PM [facility] [employer] Pulse - - Temperature 36.7 C (98 F) 06/26/2019 4:29 PM [facility] [employer] Respiratory Rate 18 06/26/2019 4:29 PM [facility] [employer] Oxygen Saturation - - Inhaled Oxygen Concentration - - Weight 79.6 kg (175 lb 6.4 oz) 06/26/2019 4:29 PM [facility] [employer] Height 165.1 cm (5' 5") 06/26/2019 4:29 PM [facility] [employer] Body Mass Index 29.19 06/26/2019 4:29 PM [facility] [employer] documented in this encounter Progress Notes Brigid Beckett, BRITTANY - 06/26/2019 4:15 PM CST Chief complaint: Chief Complaint Patient presents with ROUTINE VISIT HPI CC: Follow Up Visit Samara Diego is a 33 year old, , /White female. Patient' s last menstrual period was 12/22/2018 (approximate). She is 36w5d with an intrauterine . Her estimated date of delivery is 07/19/2019, by Ultrasound. Today she reports she has been having contractions all day. She rates her pain a 8/10. She denies any LOF or VB. She reports + FM. Histories OB History Para Term AB Living 2 1 1 SAB TAB Ectopic Multiple Live Births # Outcome Date GA Lbr Edwardo/2nd Weight Sex Delivery Anes PTL Lv 2 Current 1 Term 2009 37w0d 6 lb 15 oz (3.147 kg) [...] file Gets together: Not on file Attends islam service: Not on file Active member of [...] Labs I have reviewed the patient's labs. and Labs are pending. Radiology No new radiology. Allergies Samara has No Known Allergies. Medications Samara has a current medication list which includes the following prescription( s): bupropion xl andalbuterol. Review of Systems Constitutional: Negative. HENT: Negative. Eyes: Negative. Respiratory: Negative. Breasts: Negative. Cardiovascular: Negative. Gastrointestinal: Negative. Genitourinary: Negative. Musculoskeletal: Negative. Skin: Negative. Neurological: Negative. Psychiatric/Behavioral: Negative. Endocrine: Endocrine negative BP 130/70 (BP Location: Left arm, Patient Position: Sitting, BP CUFF SIZE: Adult Medium) | Temp 36.7 C (98 F) (Oral) | Resp 18 | Ht 5' 5" (1.651 m) | Wt 175 lb 6.4 oz (79.6 kg) | LMP 12/22/2018 (Approximate) | BMI 29.19 kg/ m Pregravid BMI: 28.5 Physical Exam Vitals reviewed. Constitutional: She is oriented to person, place, and time. She appears well- developed and well-nourished. Pulmonary/Chest: Normal inspiratory effort. Abdominal: Abdomen is soft. No mass palpated. No tenderness present. There is no rigidity and no guarding. Neuro/Psychiatric: She has a normal mood and affect. She is oriented to person, place, and time. Skin: Skin normal. Uterus: Soft, gravid, nontender Assessment/Plan High-risk in third trimester (primary encounter diagnosis) Comment: Patient appears well, see HPI. Today we discussed kick counts. Monitor movementthroughout the day. If you notice a decrease or change in movement, lie down, have a snack, and monitor your baby's movement. ACOG states "a healthy baby should have 10 movements in less than 2 hours. Most babies will take less than 30 minutes". Call or proceed to hospital for evaluation if you notice less than this. -SVE 5-6/80/-2 w/ BBOW during a contraction, to L&D via wheelchair Plan: CBC WITH DIFF, GROUP B STREPTOCOCCUS BY PCR, GROUP B STREPTOCOCCUS BY PCR Late care Comment: care began @ 30 weeks due to 'not knowing I was ' Plan: continue adequate care Smoking (tobacco) complicating , unspecified trimester Comment: daily smoker Plan: cessation advised Depression during in third trimester Comment: patient is tearful after finding out that she needs to go to L&D, but has FOB and son at side Plan: continue to monitor BMI 29.0-29.9,adult Comment: BMI 29.19. 1 lb weight loss since last visit, 4 lb TWG. Dietary counseling - avoid sweets, added sugars, sweetened beverages and processed carbs. Concentrate on lean proteins, vegetables and fruits, and healthy fats. Drink plenty of water. Try to get 30 minutes of moderate exercise/walking onmost days. Plan: monitor each visit Return to clinic in 3 weeks. Reviewed patient instructions and provided printed copy. This visit did not involve counseling and coordination that comprised more than 50% of the visit time. BRITTANY Morgan documented in this encounter Plan of Treatment Date Type Specialty Care Team Description 07/03/2019 Routine Visit OB Brigid Savage FNP [address] [place] [phone] 07/10[facility] [address] [place] [phone] 07/17/2019 [facility] [address] [place] [phone] Name Type Priority Associated Diagnoses Order Schedule CBC WITH DIFF LAB Routine High-risk in Expected: 06/26/2019, third trimester Expires: 06/26/2020 GROUP B STREPTOCOCCUS BY LAB Routine High-risk in Expected: 06/26, PCR third trimester Expires: 06/26/2020 Health Maintenance Due Date Last Done Comments [...] unspecified trimester Depression during in third trimester BMI 29.0-29.9,adult Body Mass Index 29.0-29.9, adult documented in this encounter Insurance Payer Benefit Plan / Subscriber ID Effective Dates Phone Address Type Group [facility] xxxxxxxxx 2019-Presen Medicaid HEALTH PLAN - [employer] MANAGED MEDICAID ([place]) [place] [address] documented as of this encounter
--- OUTSIDE RECORDS SUMMARY | 2019-08-23 14:30 | XMS REPORT | Summary of Care ---
:1985 Author Organization [facility] Address [address] [place] [address] Care Team Providers Name Role Phone [facility] Primary Care Provider Reason for Referral (Routine) Status Reason Specialty Diagnoses / Referred By Referred To Procedures Contact Contact New Request Diagnoses 36 weeks gestation of Labor and delivery, indication for care (spontaneous vaginal delivery) Single live Laceration, obstetrical, first degree Smoking History of depression Joaquina Hartmann, SUPERVISOR CASE LOADING Procedures DISCHARGE FOLLOW-UP: [facility] [address] [place] [address] Reason for Visit Auth/Cert Status Reason Specialty Diagnoses / Referred By Contact Referred To Contact Procedures Obstetrics Diagnoses LABOR J10c [address] [place] [phone] Encounter Details Date Type Department Care Team Description 06/26/2019 - Hospital Encounter Obstetrics and Marsha Nieto ( spontaneous 06/28/2019 Gynecology (J10C) MD Lc vaginal delivery) [address] [place] [address] [id number] [place] [phone] [id number] Allergies No Known Allergiesdocumented as of this [...] in 02/24/2009 06/19/2019 Overview: ICD10 Diagnosis Term Pacs Administrator Utility SROM (spontaneous rupture of membranes) 02/23/2009 06/19/2019 Supervision of normal first 02/23/2009 06/19/2019 Antepartum anemia 02/23/2009 06/19/2019 Overview: Hgb 9.7 on admit ICD10 Diagnosis Term Pacs Administrator Utility documented as of this encounter [...] Sign Reading Time Taken Comments Blood Pressure 154/91 06/28/2019 8:00 AM PLASTIC TOP ASSEMBLER Pulse 71 06/28/2019 8:00 AM PLASTIC TOP ASSEMBLER Temperature 36.6 C (97.9 F) 06/28/2019 8:00 AM PLASTIC TOP ASSEMBLER Respiratory Rate 20 06/28/2019 8:00 AM PLASTIC TOP ASSEMBLER Oxygen Saturation 37% 06/28/2019 8:00 AM PLASTIC TOP ASSEMBLER Inhaled Oxygen Concentration - - Weight - - Height - - Body Mass Index - - documented in this encounter Discharge Instructions AttachmentsThe following attachments cannot be sent through Care Everywhere.Vaginal , After a (Albanian)Expressed Milk, Storing (Albanian) FAQs (Albanian)documented in this encounter Progress Notes Allyson Burrell LMSW - 06/28/2019 11:25 AM CSTTHIS NOTE IS COPIED FROM BABY 'S CHART: Social Work Note REGISTERED SALES ASSISTANT interviewed MOB: Samara Johnathon ph: [phone], who reports residing at [address] [place] [address] with her parents and 10 year old. MOB reports FOB is Jose Eisenberg ph: [phone].MOB reports having a car seat and all other necessary items for baby to go home with. MOB is alreadyestablished with [facility] and will make baby an appointment. MOB reports plans to follow-up at the [facility] clinic. MOB has transportation home and to appointments. MOB reports she shares custody with the 10 year old's father. MOB reports a history of depression and starts she was started on Wellbutrin this week. MOB reports she sees a counselor at 's. MOB provided educational material on PPD. Signs/symptoms reviewed and MOB encouraged to notify physician if experiencing any signs/symptoms of PPD. MOB denies any concerns for drugs or alcohol. NB's UDS is positive for cocaine and THC. Meconium pending at this time. ELADIA contacted [facility] hotline and made a report with aKndis id: [id number], reference# [id number]. Per Kandis, investigation will be recommended as a Priority 1. Plan: Pending [facility] recommendations Allyson Burrell LMSW Care Management Pager: [phone] Joaquina Joy FNP - 06/27/2019 9:20 AM CST PROGRESS NOTE Subjective: Patient is a 33 year old , S/P , post day 1. She complains of cramps. Patient denies sob, vertigo, or palpitations. Patient reports voiding without difficulty with good urine output. Patient reports ambulating unassisted without difficulty. Tolerating diet, passing flatus. Breast/bottlefeeding. No evidence of depression. Changes since previous day: Delivered Objective: Vital Signs: BP: (112-161)/(64-106) Temp: [36.4 C (97.5 F)-37.1 C (98.8 F)] Temp source: Oral (06/27 0800) Pulse: [52-99] Resp: [18-19] SpO2: [95 %-100 %] Height: [165.1 cm (5' 5")] Weight: [79.6 kg (175 lb 6.4 oz)] BMI (calculated): [29.19] Physical Exam: General: No apparent distress Happy with new baby. Affect appropriate Heart: regular rate and rhythm. S1, S2 present. No murmur/ rubs/gallops Lungs: good inspiratory effort to inspections, lungs clear to auscultation bilaterally. No wheeze/stridor/ crackles bilaterally. Breast: soft Abdomen: soft non-tender Fundus: firm at umbilicus Perineum: minor laceration, intact, no edema, hematoma or abcess Lochia: scant rubra, no clots Extremities: no clubbing, cyanosis, or edema bilaterally. No calf tenderness/ NEG Daniel's Current Medications: Current Facility-Administered Medications Medication Dose Route Frequency Last Rate Last Dose acetaminophen (TYLENOL) tablet 650 mg 650 mg Oral Q6H 650 mg at 06/27/19 0750 albuterol (VENTOLIN) inhaler 2 Puff 2 Puff Inhalation Q4HPRN benzocaine-menthol (DERMOPLAST) 20-0.5 % topical spray Topical PRN buPROPion XL (WELLBUTRIN XL) tablet 150 mg 150 mg Oral DAILY 150 mg at 0750 diphenhydrAMINE (BENADRYL) 25 mg in NaCl 0.9% (NS) piggyback 25 mg IV Piggyback Q6HPRN diphenhydrAMINE (BENADRYL) tablet 25 mg 25 mg Oral Q6HPRN docusate calcium (SURFAK) capsule 240 mg 240 mg Oral QDAILYPRN human papillomav vac,9-tammy(PF) (GARDASIL 9 (PF)) vial 0.5 mL 0.5 mL Intramuscular ONCE-PRIOR TODISCHARGE ibuprofen (IBU) tablet 600 mg 600 mg Oral Q6H 600 mg at 06/27/19 0610 magnesium hydroxide (MILK OF MAGNESIA) 400 mg/5 mL suspension 30 mL 30 mL Oral QDAILYPRN ondansetron (ZOFRAN (PF)) injection 4 mg 4 mg Slow IV Push Q8HPRN vitamin w/FA (PRENATABS RX) tablet 1 tablet 1 tablet Oral DAILY 1 tablet at 06/27/200650 rho(D) immune globulin (RHOGAM) syringe 300 mcg 300 mcg Intramuscular ONCE simethicone (GAS RELIEF (SIMETHICONE)) chewable tablet 160 mg 160 mg Oral PC+HSPRN Labs: CBC BMP MAGNESIUM WBC x10^3 (/uL) Date Value 12/02/2012 7.3 WBC (10*3/L) Date Value 06/27/2019 12.04 (H) NA (MMOL/L) Date Value 12/02/2012 137 No results found for: MG PLT x10^3 (/uL) Date Value 12/02/2012 186 PLT (10*3/L) Date Value 06/27/2019 184 K (MMOL/L) Date Value 12/02/2012 4.5 HGB Date Value 06/27/2019 11.8 g/dL 12/02/2012 12.2 G/DL CALCIUM (MG/DL) Date Value 12/02/2012 8.6 HCT (%) Date Value 06/27/2019 33.6 (L) 12/02/2012 35.8 CL (MMOL/L) Date Value 12/02/2012 105 TYPE & RH BUN (MG/DL) Date Value 12/02/2012 11 ABO & RH (no units) Date Value 06/26/2019 O POSITIVE CREATININE Date Value 06/26/2019 0.76 mg/dL 12/02/2012 0.79 MG/DL Type & Screen Rubella Varicella ABO & RH (no units) Date Value 06/26/2019 O POSITIVE RUBELLA (no units) Date Value 10/26/2008 POSITIVE Rubella screen IgG (no units) Date Value 05/11/2019 Positive VZV IgG (no units) Date Value 11/27/2008 POSITIVE ANTIBODY SCREEN (no units) Date Value 02/23/2009 NEGATIVE Hep B HIV Syphilis HBsAg (no units) Date Value 02/23/2009 NEGATIVE HIV 1/2 Ab (no units) Date Value 02/23/2009 NEGATIVE No results found for: SYPG Group B Strep Chlamydia Group B Streptococcus Screen Culture (no units) Date Value 02/08/2009 [id number] SAMARA DIEGO 23 YRS GROUP B STREP SCREEN CULTURE DATE: SOURCE: VAGINAL/ANAL RECEIVE DATE: 02/08/092048 ANOVAG START DATE: 02/08/092048 FINAL REPORT: 02/11/09 1128 NO GROUP B STREPTOCOCCI ISOLATED Chlamydia Amplified Assay (no units) Date Value 10/26/2008 NEGATIVE Assessment/Plan: Principal Problem: (spontaneous vaginal delivery) (06/27/2019) POA: No Assessment: Delivered Plan: Routine course Active Problems: 36 weeks gestation of (06/26/2019) POA: Yes Single live (06/27/2019) POA: No Assessment: 2230g with 8/9 Apgars Plan: Infant in care of pediatricians Laceration, obstetrical, minor (06/27/2019) POA: No Assessment: no edema or hematoma. Plan: caleb care, use caelb bottle with/ warm water after each void , Ibuprofen for pain / inflammation Gestational hypertension (06/27/2019) POA: Clinically Undetermined Assessment: B/P elevated on admission, tox labs negative, Pr/Cr ration of 0.1. Pt r/i for GHTN PP BP readings ranging from 130's-150's/ 60's-80's, Discussed signs and symptoms of PIH , pt is asymptomatic. Plan: Keep monitoring and D/C home tomorrow w/ 1 week F/U on BP recheck at the clinic. Smoking (06/27/2019) POA: Yes Assessment: Current everyday smoker, not ready to quit reports that she will not smoke around . Plan: Smoking cessation encouraged History of depression (06/27/2019) POA: Yes Assessment: Taking Wellbutrin , denies signs or symptoms of depression, no SI/ HI , mood is stable Plan: Reassess pt for depression at 3 week PP visit . Strong SI/HI ER warnings Asthma (02/23/2009) POA: Yes Assessment: as a child, no recent episodes Plan: Albuterol PRN ASSESSMENT 33 y/o S/p on 06/27/2019 at 10:43 PM complicated by GHTN/PTL. Patient is recovering well: hemodynamically stable, good UOP, pain well-controlled, vitals within normal limits. PLAN 1. Review: - Admitted for: AOL d/t PTL - Estimated blood loss: 200 ml - Laceration: minor - Vaginal delivery Complications: None - Predelivery H/H: 12/34.7 - Postdelivery H/H:11.8/33.6 2. care: - Diet: Regular diet - Fluid: Encourage oral intake - Activity: Encourage ambulation - Pain: [place] and Ibuprofen - DVT prophylaxis: Encourage ambulation 3. Discharge Planning: - Contraception: Undecided - Vaccines: up to date - Follow Up: follow-up in 3 weeks at clinic - Anticipate discharge tomorrow 4. Baby Status - at bedside BRITTANY Meza Elma Canada MD - 06/26/2019 6:37 PM CST Progress Note GCCT, GBS and wet prep collected Wet prep negative No lice visualized in the pubic region or on her scalp Plan to recheck cervix at 1945 Rules in for GHTN due to UPC of 0.1 and mild BPs. 06/26/2019 17:46 HGB 12.0 HCT 34.7 PLT x10^3 215 CREATININE 0.76 URIC ACID 5.7 AST(SGOT) 24 ALTv 11 LDH 387 Protein/Creatinine Ratio Urine 0.1 Elma Montes MD CARDING MACHINE OPERATOR Resident Physician documented in this encounter Plan of Treatment Date Type Specialty Care Team Description 07/19/2019 Routine Visit OB Satellites Brigid Beckett FNP [address] [place] [address] Health Maintenance Due Date Last Done Comments PAP SMEAR 10/27/2011 10/26/2008 INFLUENZA VACCINE (#1) 2019 02/25/2009 DTaP,Tdap,and Td Vaccines (2 - Td) 06/19/2029 06/19/2019 PNEUMOCOCCAL 0-64 YEARS COMBINED SERIES Discontinued documented as of this encounter Procedures Procedure Name Priority Date/Time Associated Comments Diagnosis CBC WITH DIFFERENTIAL Routine 06/27/2019 3:55 Results for this AM PLASTIC TOP ASSEMBLER procedure are in the results section. CBC WITH DIFFERENTIAL Routine 06/27/2019 3:55 Results for this AM PLASTIC TOP ASSEMBLER procedure are in the results section. VENOUS CORD GAS NORAH 06/26/2019 10:49 Results for this PM PLASTIC TOP ASSEMBLER procedure are in the results section. ARTERIAL CORD GAS NORAH 06/26/2019 10:49 Results for this PM PLASTIC TOP ASSEMBLER procedure are in the results section. CBC WITH DIFFERENTIAL STAT 06/26/2019 8:24 Results for this PM PLASTIC TOP ASSEMBLER procedure are in the results section. CBC WITH DIFFERENTIAL STAT 06/26/2019 8:24 Results for this PM PLASTIC TOP ASSEMBLER procedure are in the results section. LACTATE DEHYDROGENASE STAT 06/26/2019 8:24 Results for this PM PLASTIC TOP ASSEMBLER procedure are in the results section. PROTEIN CREAT RATIO STAT Add-On 06/26/2019 6:39 Results for this URINE RANDOM PM PLASTIC TOP ASSEMBLER procedure are in the results section. GC & CHLAMYDIA NORAH 06/26/2019 6:39 Results for this AMPLIFIED ASSAY PM PLASTIC TOP ASSEMBLER procedure are in the results section. URINE CULTURE STAT 06/26/2019 6:39 Results for this PM PLASTIC TOP ASSEMBLER procedure are in the results section. URINALYSIS STAT 06/26/2019 6:39 Results for this PM PLASTIC TOP ASSEMBLER procedure are in the results section. GALV ONLY - SYPHILIS NORAH 06/26/2019 5:46 Results for this IGG/IGM PM PLASTIC TOP ASSEMBLER procedure are in the results section. HIV 1/2 AG-AB WITH NORAH 06/26/2019 5:46 Results for this REFLEX PM PLASTIC TOP ASSEMBLER procedure are in the results section. RHO (D) IMMUNE Routine 06/26/2019 5:46 Results for this GLOBULIN PM PLASTIC TOP ASSEMBLER procedure are in the results section. HB ABO GROUPING NORAH 06/26/2019 5:46 Results for this PM PLASTIC TOP ASSEMBLER procedure are in the results section. HEPATITIS B SURFACE NORAH 06/26/2019 5:46 Results for this ANTIGEN PM PLASTIC TOP ASSEMBLER procedure are in the results section. URIC ACID STAT Add-On 06/26/2019 5:46 Results for this PM PLASTIC TOP ASSEMBLER procedure are in the results section. ALANINE AMINO STAT Add-On 06/26/2019 5:46 Results for this TRANSFERASE(SGPT PM PLASTIC TOP ASSEMBLER procedure are in the results section. CREATININE STAT Add-On 06/26/2019 5:46 Results for this PM PLASTIC TOP ASSEMBLER procedure are in the results section. SGOT (ASPARTATE AMINO STAT Add-On 06/26/2019 5:46 Results for this TRANSFER) PM PLASTIC TOP ASSEMBLER procedure are in the results section. documented in this encounter Results CBC WITH DIFFERENTIAL (06/27/2019 3:55 AM PLASTIC TOP ASSEMBLER) WBC 12.04 (H) 4.30 - 11.10 [facility] 10*3/L SERVICES RBC 3.47 (L) 3.93 - 5.25 [facility] 10*6/L SERVICES HGB 11.8 11.6 - 15.0 [facility] g/dL SERVICES HCT 33.6 (L) 35.7 - 45.2 % [facility] MCV 96.8 (H) 80.6 - 95.5 fL [facility] MCH 34.0 (H) 25.9 - 32.8 pg [facility] MCHC 35.1 31.6 - 35.1 [facility] g/dL SERVICES RDW-SD 44.3 39.0 - 49.9 fL [facility] RDW-CV 12.5 12.0 - 15.5 % [facility] PLT 184 166 - 358 [facility] 10*3/L SERVICES MPV 10.1 9.5 - 12.9 fL [facility] NRBC/100 WBC 0.0 0.0 - 10.0 /100 [facility] WBCs SERVICES NRBC x10^3 <0.01 10*3/L [facility] GRAN MAT (NEUT) % 75.5 % [facility] IMM GRAN % 0.70 % [facility] LYMPH % 17.9 % [facility] MONO % 5.2 % [facility] EOS % 0.5 % [facility] BASO % 0.2 % [facility] GRAN MAT x10^3(ANC) 9.09 (H) 1.88 - 7.09 [facility] 10*3/uL SERVICES IMM GRAN x10^3 0.09 (H) 0.00 - 0.06 [facility] 10*3/uL SERVICES LYMPH x10^3 2.15 1.32 - 3.29 [facility] 10*3/uL SERVICES MONO x10^3 0.63 0.33 - 0.92 [facility] 10*3/uL SERVICES EOS x10^3 0.06 0.03 - 0.39 [facility] 10*3/uL SERVICES BASO x10^3 <0.03 0.01 - 0.07 [facility] 10*3/uL SERVICES Specimen Blood - ARM, RIGHT Performing Organization Address City/State/Zipcode Phone Number [facility] CLIA: [id number], [address] [place] [address] [phone] ARTERIAL CORD GAS (06/26/2019 10:49 PM PLASTIC TOP ASSEMBLER) BASE EXCESS, CORD -1.2 mEq/L [facility] AC PH, CORD (BEAKER) 7.29 7.18 - 7.38 [facility] PC02, CORD 56 32 - 66 mmHg [facility] PO2, CORD 15 10 - 30 mmHg [facility] BICARBONATE, CORD 26 17 - 27 mEq/L [facility] Specimen Blood - CORD Performing Organization Address City/State/Zipcode Phone Number [facility] CLIA: [id number], [address] [place] [phone] [facility] VENOUS CORD GAS (06/26/2019 10:49 PM PLASTIC TOP ASSEMBLER) VENOUS BASE EXCESS, -1.5 mEq/L [facility] CORD SERVICES VENOUS PH, CORD 7.32 7.25 - 7.45 [facility] VENOUS PC02, CORD 50 (H) 27 - 49 mmHg [facility] VENOUS PO2, CORD 19 17 - 41 mmHg [facility] VENOUS BICARBONATE, 25 12 - 29 mEq/L [facility] CORD SERVICES Specimen Blood - CORD Performing Organization Address City/State/[facility] Phone Number [facility] CLIA: [id number], [address] [place] [address] [phone] [facility] CBC WITH DIFFERENTIAL (06/26/2019 8:24 PM PLASTIC TOP ASSEMBLER) WBC 8.67 4.30 - 11.10 [facility] 10*3/L SERVICES RBC 3.55 (L) 3.93 - 5.25 [facility] 10*6/L SERVICES HGB 12.0 11.6 - 15.0 [facility] g/dL SERVICES HCT 34.7 (L) 35.7 - 45.2 % [facility] MCV 97.7 (H) 80.6 - 95.5 fL [facility] MCH 33.8 (H) 25.9 - 32.8 pg [facility] MCHC 34.6 31.6 - 35.1 [facility] g/dL SERVICES RDW-SD 45.2 39.0 - 49.9 fL [facility] RDW-CV 12.6 12.0 - 15.5 % [facility] PLT 215 166 - 358 [facility] 10*3/L SERVICES MPV 9.9 9.5 - 12.9 fL [facility] NRBC/100 WBC 0.0 0.0 - 10.0 /100 [facility] WBCs SERVICES NRBC x10^3 <0.01 10*3/L [facility] GRAN MAT (NEUT) % 72.9 % [facility] IMM GRAN % 1.00 % [facility] LYMPH % 18.9 % [facility] MONO % 5.5 % [facility] EOS % 1.4 % [facility] BASO % 0.3 % [facility] GRAN MAT x10^3(ANC) 6.31 1.88 - 7.09 [facility] 10*3/uL SERVICES IMM GRAN x10^3 0.09 (H) 0.00 - 0.06 [facility] 10*3/uL SERVICES LYMPH x10^3 1.64 1.32 - 3.29 [facility] 10*3/uL SERVICES MONO x10^3 0.48 0.33 - 0.92 [facility] 10*3/uL SERVICES EOS x10^3 0.12 0.03 - 0.39 [facility] 10*3/uL SERVICES BASO x10^3 0.03 0.01 - 0.07 [facility] 10*3/uL SERVICES Specimen Blood - VENOUS Performing Organization Address [facility] Phone Number [facility] CLIA: [id number], [address] [place] [address] [phone] [facility] Lactate Dehydrogenase (06/26/2019 8:24 PM PLASTIC TOP ASSEMBLER) LDH 387 300 - 600 U/L [facility] Specimen Blood - VENOUS Performing Organization Address [facility] Phone Number [facility] CLIA: [id number], [address] [place], [place] [phone] [facility] Protein CREAT Ratio Urine Random (06/26/2019 6:39 PM PLASTIC TOP ASSEMBLER) T. PROT U 23 mg/dL [facility] CREAT U 184.1 mg/dL [facility] Protein/Creatinine 0.1 0.0 - 2.0 [facility] Ratio Urine Specimen Urine - URINE, CLEAN CATCH Performing Organization Address [facility] Phone Number [facility] CLIA: [id number], [address] [place] [address] [phone] [facility] GC & CHLAMYDIA AMPLIFIED ASSAY (06/26/2019 6:39 PM PLASTIC TOP ASSEMBLER) C. trachomatis Nucleic Negative Negative [facility] Acid SERVICES N. gonorrhoeae Nucleic Negative Negative [facility] Acid SERVICES Specimen Fluid - CERVIX Performing Organization Address City/[facility]/Zipcode Phone Number [facility] CLIA: [id number], [address] [place] [address] [phone] [facility] URINE CULTURE (06/26/2019 6:39 PM PLASTIC TOP ASSEMBLER) URINE CULTURE 10,000 - 100,000 [facility] CFU/mL mixed aerobic SERVICES organisms - suggests endogenous microbial contamination Specimen Urine - URINE, CLEAN CATCH Performing Organization Address [facility] Phone Number [facility] CLIA: [id number], [address] [place] [phone] [facility] URINALYSIS (06/26/2019 6:39 PM PLASTIC TOP ASSEMBLER) APPEARANCE Cloudy (A) Clear [facility] COLOR Yellow Yellow [facility] PH 6.0 4.8 - 8.0 [facility] SP GRAVITY 1.017 1.003 - 1.030 [facility] GLU U QUAL Normal Normal [facility] BLOOD 2+ (A) Negative [facility] KETONES Negative Negative [facility] PROTEIN Negative Negative [facility] UROBILIN Normal Normal [facility] BILIRUBIN Negative Negative [facility] NITRITE Negative Negative [facility] [place] MARLON 500/uL (A) Negative [facility] RBC/HPF 29 (H) 0 - 3 HPF [facility] WBC/HPF 12 (H) 0 - 5 HPF [facility] BACTERIA Few (A) Negative [facility] MUCOUS Slight (A) Negative LPF [facility] AMORPHOUS Few (A) Rare HPF [facility] SQ EPITH 6 (H) <=2 HPF [facility] TRANS EPI <1 <=1 HPF [facility] Specimen Urine - URINE, CLEAN CATCH Performing Organization Address [facility] Phone Number [facility] CLIA: [id number], [address] [place] [address] [phone] [facility] RHO (D) IMMUNE GLOBULIN (06/26/2019 5:46 PM PLASTIC TOP ASSEMBLER) RHIG CANDIDATE? No- see comment LAB Comment: Patient is not a candidate for RhIg- Patient is Rh Positive. Performed at [facility] Services - [facility] [address] [place] [address] Toll Free: [phone] CLIA No. [id number] Specimen Blood - VENOUS Performing Organization Address City/State/Zipcode Phone Number [facility] Alanine Amino Transferase (SGPT) (06/26/2019 5:46 PM PLASTIC TOP ASSEMBLER) ALTv 11 5 - 35 U/L [facility] Specimen Blood - VENOUS Performing Organization Address City/[facility]/Zipcode Phone Number [facility] CLIA: [id number], [address] [place] [address] [facility] SGOT (Asparate Amino Transfer) (06/26/2019 5:46 PM PLASTIC TOP ASSEMBLER) AST(SGOT) 24 13 - 40 U/L [facility] Specimen Blood - VENOUS Performing Organization Address City/[facility]/Zipcode Phone Number [facility] CLIA: [id number], [address] [place] [address] [facility] Serum Creatinine (06/26/2019 5:46 PM PLASTIC TOP ASSEMBLER) CREATININE 0.76 0.50 - 1.04 [facility] mg/dL SERVICES eGFR Calculation 87.6 mL/min/1.73m2 [facility] (Non-) SERVICES eGFR Calculation 106.2 mL/min/1.73m2 [facility] () SERVICES Specimen Blood - VENOUS Narrative Performed At Association of Glomerular Filtration Rate (GFR) and Staging [facility] of Kidney Disease* + + + + | GFR (mL/min/1.73 m2) | With Kidney Damage | Without Kidney Damage + + + + | >90 | Stage one | Normal + + + + | 60-89 | Stage two | Decreased GFR + + + + | 30-59 | Stage three | Stage three + + + + | 15-29 | Stage four | Stage four + + + + | <15 (or dialysis) | Stage five | Stage five + + + + *Each stage assumes the associated GFR level has been in effect for at least three months. Stages 1 to 5, with or without kidney disease, indicate chronic kidney disease. Notes: Determination of stages one and two (with eGFR >59mL/min/1.73 m2) requires estimation of kidney damage for at least three months as defined by structural or functional abnormalities of the kidney, manifested by either: Pathological abnormalities or Markers of kidney damage (including abnormalities in the composition of the blood or urine or abnormalities in imaging tests). Performing Organization Address City/State/Zipcode Phone Number [facility] CLIA: [id number], [address] [place] [address] [facility] Uric Acid Serum (06/26/2019 5:46 PM PLASTIC TOP ASSEMBLER) URIC ACID 5.7 2.9 - 6.0 mg/dL [facility] Specimen Blood - VENOUS Performing Organization Address [facility] Phone Number [facility] CLIA: [id number], [address] [place] [address] [phone] [facility] HIV 1/2 AG-AB WITH REFLEX (06/26/2019 5:46 PM PLASTIC TOP ASSEMBLER) HIV 1/2 Ag-Ab with Negative Negative [facility] SERVICES HIV Semi-quantitative 0.07 [facility] Specimen Blood - VENOUS Narrative Performed At Non-reactive for HIV-1 antigen and HIV-1/HIV-2 antibodies. [facility] No laboratory evidence of HIV infection. Repeat in 2-4 weeks if acute HIV infection is suspected. Performing Organization Address [facility] Phone Number [facility] CLIA: [id number], [address] [place] [address] [facility] Type and Screen - ONCE NORAH (06/26/2019 5:46 PM PLASTIC TOP ASSEMBLER) ABO & RH O POSITIVE LAB Comment: Performed at [facility] - [facility] Blood [place] [address] Toll Free: [phone] CLIA No. [id number] IAT Negative LAB Comment: Performed at [facility] - [facility] Blood [place] [address] Toll Free: [phone] CLIA No. [id number] Specimen Blood Performing Organization Address City/[facility]/Zipcode Phone Number [facility] GALV ONLY - SYPHILIS IGG/IGM (06/26/2019 5:46 PM PLASTIC TOP ASSEMBLER) Syphilis IgG/IgM Non-reactive Non-reactive [facility] Specimen Blood - VENOUS Narrative Performed At [facility] Non-reactive - No serologic evidence of T. pallidum infection. Cannot exclude incubating or early syphilis. Submit a second specimen in 2-4 weeks if syphilis is clinically suspected. Equivocal - Further testing to follow. Reactive - Further testing to follow. Performing Organization Address City/[facility] Phone Number [facility] CLIA: [id number], [address] [place] [address] [phone] [facility] Hepatitis B Surface Antigen (06/26/2019 5:46 PM PLASTIC TOP ASSEMBLER) HBsAg Negative Negative [facility] HBsAg 0.04 [facility] Semi-Quantitative SERVICES Specimen Blood - VENOUS Performing Organization Address City/[facility] Phone Number [facility] CLIA: [id number], [address] [place] [address] [phone] [facility] documented in this encounter Visit Diagnoses Diagnosis (spontaneous vaginal delivery) - Primary Normal delivery 36 weeks gestation of state, incidental Labor and delivery, indication for care Unspecified indication for care or intervention related to labor and delivery, unspecified as to episode of care Single live Outcome of delivery, single liveborn Laceration, obstetrical, minor First-degree perineal laceration, unspecified as to episode of care in Smoking Tobacco use disorder History of depression Personal history of other mental disorder Asthma Unspecified asthma Gestational hypertension Unspecified hypertension complicating , childbirth, or the puerperium, unspecified as to episode of care documented in this encounter Administered Medications Medication Order MAR Action Action Date Dose Rate Site acetaminophen (TYLENOL) tablet 650 mg 650 mg, Oral, Q6HPRN, Starting Wed06/27/19 at 1241, Until Discontinued, Routine , Pain (scale 4-6) benzocaine-menthol (DERMOPLAST) 20-0.5 % topical Given 06/27/2019 7:52 AM PLASTIC TOP ASSEMBLER spray Topical, PRN, Starting Wed06/27/19 at 0242, Until Discontinued, Routine, Perineum discomfort buPROPion XL (WELLBUTRIN XL) tablet 150 mg Given 06/28/2019 8:40 AM PLASTIC TOP ASSEMBLER 150 mg 150 mg, Oral, DAILY, First dose on Wed06/27/19 at 0900, Until Discontinued, Routine Given 06/27/2019 7:50 AM PLASTIC TOP ASSEMBLER 150 mg ibuprofen (IBU) tablet 600 mg Given 06/28/2019 2:28 AM PLASTIC TOP ASSEMBLER 600 mg 600 mg, Oral, Q6HPRN, Starting Wed06/27/19 at 1241, Until Discontinued, Routine, Pain (scale 4-6) vitamin w/FA (PRENATABS RX) Given 06/28/2019 8:40 AM PLASTIC TOP ASSEMBLER 1 tablet tablet 1 tablet 1 tablet, Oral, DAILY, First dose on Wed06/27/19 at 0900, Until Discontinued, Routine Given 06/27/2019 7:50 AM PLASTIC TOP ASSEMBLER 1 tablet Medication Order MAR Action Action Date Dose Rate Site acetaminophen (TYLENOL) tablet Given 06/27/2019 7:50 AM PLASTIC TOP ASSEMBLER 650 mg 650 mg 650 mg, Oral, Q6H, First dose on Wed06/27/19 at 0600, Until Discontinued, Routine D5W-LR IV infusion 1,000 mL New Bag 06/26/2019 5:30 PM PLASTIC TOP ASSEMBLER 1,000 mL 125 mL/hr at 125 mL/hr, IV Infusion, CONTINUOUS, Starting Wed06/26/19 at 1745, Until Wed06/27/19 at 024, Routine human papillomav Given 06/28/2019 11:18 AM PLASTIC TOP ASSEMBLER 0.5 mL Right Deltoid-IM vac,9-tammy(PF) (GARDASIL 9 (PF)) vial 0.5 mL 0.5 mL, Intramuscular, ONCE-PRIOR TO DISCHARGE, 1 dose, Starting Wed06/27/19 at 0242, Until Wed06/28/19 at 1118, Routine, Give vaccine prior to discharge ibuprofen (IBU) tablet 600 mg Given 06/27/2019 6:10 AM PLASTIC TOP ASSEMBLER 600 mg 600 mg, Oral, Q6H, First dose on Wed06/27/19 at 0600, Until Discontinued, Routine lactated ringers IV infusion 500 New Bag 06/26/2019 8:38 PM PLASTIC TOP ASSEMBLER 500 mL 999 mL/hr mL at 999 mL/hr, 500 mL, IV Infusion, PRN - SEE INSTRUCTIONS, 1 dose, Starting 06/26/19 at 1750, Until Wed06/26/19 at 2037, Routine LR 1000 mL + oxytocin 20 units IV Given 06/27/2019 2:49 AM PLASTIC TOP ASSEMBLER 125 mL/hr Solution at 125 mL/hr, IV Infusion, ONCE, 1 dose, 06/27/19 at 0245, Routine nalbuphine (NUBAIN) injection 10 mg Given 06/26/2019 5:59 PM PLASTIC TOP ASSEMBLER 10 mg 10 mg, Intravenous, ONCE, 1 dose, 06/26/19 at 1900, Routine penicillin g potassium 5 Million Given 06/26/2019 9:10 PM PLASTIC TOP ASSEMBLER 5 Million Units Units in NaCl 0.9% (NS) 100 mL MINI-BAG 5 Million Units, IV Piggyback, ONCE, 1 dose, 06/26/19 at 2145, 100 mL, Reason for Anti-Infective: Empiric Therapy for Suspected Infection, Empiric Therapy Site: Other, Other site: GBS Unk, Duration of therapy: 7 days proMETHazine (PHENERGAN) 25 mg in NaCl 0.9% Given 06/26/2019 6:42 PM PLASTIC TOP ASSEMBLER 25 mg (NS) 50 mL IV piggyback 25 mg, IV Piggyback, ONCE, 1 dose, 06/26/19 at 1900, NORAH sodium citrate-citric acid (BICITRA) 500-334 Given 06/26/2019 8:39 PM PLASTIC TOP ASSEMBLER 30 mL mg/5 mL solution 30 mL 30 mL, Oral, PRE-PROCEDURE ONCE, 1 dose, Starting 06/26/19 at 2031, Until Wed06/26/19 at 2038, Routine, Surgery/Procedure documented in this encounter Insurance Payer Benefit Plan / Subscriber ID Effective Dates Phone Address Type Group [facility] [place] [facility] xxxxxxxxx 2019-Presen Medicaid HEALTH PLAN - HEALTH MANAGED MEDICAID (Home) [place] [address] documented as of this encounter
--- OUTSIDE RECORDS SUMMARY | 2019-08-23 14:31 | XMS REPORT | Summary of Care ---
:[address] [facility] Address [address] [place] [address] Care Team Providers Name Role Phone [facility] Primary [facility] Provider Reason for Visit Reason Comments Leg Pain Breast Pain Encounter Details Date Type Department Care Team Description 07/01/2019 Nurse Visit [facility] Unknown, Attending Breast pain (Primary Dx); Adult Urgent Care Nurse, [facility] Adult Urgent Pain in both lower extremities [address] [place] [address] Allergies No Known Allergiesdocumented as of this encounter (statuses as of 07/01/2019) Medications Medication Sig Dispensed Refills Start Date [...] as of this encounter (statuses as of 07/01/2019) Active Problems Problem Noted Date (spontaneous vaginal delivery) 06/27/2019 Single live 06/27/2019 Laceration, obstetrical, minor 06/27/2019 Gestational hypertension 06/27/2019 Smoking 06/27/2019 History of depression 06/27/2019 36 weeks gestation of 06/26/2019 Labor and delivery, indication for care 06/26/2019 Asthma 02/23/2009 CANNABIS ABUSE, EPISODIC 02/23/2009 documented as of this encounter (statuses as of 07/01/2019) Resolved Problems Problem Noted Date Resolved Date Second-degree perineal laceration in 02/24/2009 06/19/2019 Overview: ICD10 Diagnosis Term Account Classification Clerk Utility SROM (spontaneous rupture of membranes) 02/23/2009 06/19/2019 Supervision of normal first 02/23/2009 06/19/2019 Antepartum anemia 02/23/2009 06/19/2019 Overview: Hgb 9.7 on admit ICD10 Diagnosis Term Account Classification Clerk Utility documented as of this encounter (statuses as of 07/01/2019) Immunizations Name Administration Dates Next Due HPV9 [...] Sign Reading Time Taken Comments Blood Pressure 145/90 07/01/2019 4:21 PM RACEHORSE TRAINER Pulse 81 07/01/2019 4:20 PM RACEHORSE TRAINER Temperature 36.4 C (97.5 F) 07/01/2019 4:20 PM RACEHORSE TRAINER Respiratory Rate 18 07/01/2019 4:20 PM RACEHORSE TRAINER Oxygen Saturation 96% 07/01/2019 4:20 PM RACEHORSE TRAINER Inhaled Oxygen Concentration - - Weight 68.9 kg (151 lb 14.4 oz) 07/01/2019 4:20 PM RACEHORSE TRAINER Height - - Body Mass Index 25.28 06/26/2019 4:29 PM RACEHORSE TRAINER documented in this encounter Progress Notes Kaia Aguilera LVN - 07/01/2019 4:30 PM CSTSamara Andres Diego is a 33 year old female complaining of bilateral breast pain and leg pain that began Yesterday. Patient gave on 06/28, reports that her milk came in yesterday but was unable to breast feed and breast became hard and painfull. Also reports of night sweats and bilateral calf pain and swelling that radiates to toes, states she also feels like shes in a fog. Temperature today was 102.8 and patient took Ibuprofen about 2 hours ago. Patient AAOx4, ambulatory, eupneic, skin pink/warm/dry, no acute distress noted. Patient encouraged to seek emergency medical treatment at local emergency room for further evaluation and treatment. Case discussed with Dr. Shah, who agrees with treatment plan recommendations and informed patient of findings. Patient verbalizes understanding and states she will be seen at [facility]. Patient leaves urgent care @ 1608 en route to [facility] AAOx4, ambulatory, in no acute distress. documented in this encounter Plan of Treatment Date Type Specialty Care Team Description 07/19/2019 Routine Visit OB Satellites Brigid Beckett, BRITTANY [address] [place] [address] Health Maintenance Due Date Last Done Comments PAP SMEAR 10/27/2011 10/26/2008 INFLUENZA VACCINE (#1) 2019 02/25/2009 DTaP,Tdap,and Td Vaccines (2 - Td) 06/19/2029 06/19/2019 PNEUMOCOCCAL 0-64 YEARS COMBINED SERIES Discontinued documented as of this encounter Results Not on filedocumented in this encounter Visit Diagnoses Diagnosis Breast pain - Primary Mastodynia Pain in both lower extremities documented in this encounter Insurance Payer Benefit Plan / Subscriber ID Effective Dates Phone Address Type Group [facility] xxxxxxxxx 2019-Presen Medicaid HEALTH PLAN - [facility] MANAGED MEDICAID ([place]) [place] [address] documented as of this encounter
--- OUTSIDE RECORDS SUMMARY | 2019-08-23 14:31 | XMS REPORT | Summary of Care ---
:1985 Author Organization [facility] Address [address] [place] [address] Care Team Providers Name Role Phone [facility] Primary [facility] Provider Encounter Details Date Type Department Care Team Description 07/01/2019 Hospital Encounter Labor and Delivery Marsha Nieto ([id number]) [address] [place] [address] [id number] [place] [address] [place], [place] [id number] Allergies No Known Allergiesdocumented as of this [...] mastitis, (four) times daily for 7 days. documented as of this encounter (statuses as [...] in 02/24/2009 06/19/2019 Overview: ICD10 Diagnosis Term Autism Teacher Utility SROM (spontaneous rupture of membranes) 02/23/2009 06/19/2019 Supervision of normal first 02/23/2009 06/19/2019 Antepartum anemia 02/23/2009 06/19/2019 Overview: Hgb 9.7 on admit ICD10 Diagnosis Term Autism Teacher Utility documented as of this encounter (statuses [...] Sign Reading Time Taken Comments Blood Pressure 127/93 07/01/2019 9:51 PM CYBER SECURITY ANALYST Pulse 82 07/01/2019 9:51 PM CYBER SECURITY ANALYST Temperature 36.6 C (97.9 F) 07/01/2019 9:51 PM CYBER SECURITY ANALYST Respiratory Rate 18 07/01/2019 9:51 PM CYBER SECURITY ANALYST Oxygen Saturation 100% 07/01/2019 9:51 PM CYBER SECURITY ANALYST Inhaled Oxygen Concentration - - Weight - - Height - - Body Mass Index - - documented in this encounter Plan of Treatment Date Type Specialty Care Team Description 07/19/2019 Routine Visit OB Satellites Brigid Beckett, INDEPENDENT CONSULTANT [address] [place] [address] Health Maintenance Due Date Last Done Comments PAP SMEAR 10/27/2011 10/26/2008 INFLUENZA VACCINE (#1) 2019 02/25/2009 DTaP,Tdap,and Td Vaccines (2 - Td) 06/19/2029 06/19/2019 PNEUMOCOCCAL 0-64 YEARS COMBINED SERIES Discontinued documented as of this encounter Procedures Procedure Name Priority Date/Time Associated Comments Diagnosis PROTEIN CREAT RATIO STAT 07/01/2019 10:32 Results for this URINE RANDOM PM CYBER SECURITY ANALYST procedure are in the results section. URINALYSIS STAT 07/01/2019 10:32 Results for this PM CYBER SECURITY ANALYST procedure are in the results section. CBC WITH DIFFERENTIAL STAT 07/01/2019 10:31 Results for this PM CYBER SECURITY ANALYST procedure are in the results section. CBC WITH DIFFERENTIAL STAT 07/01/2019 10:31 Results for this PM CYBER SECURITY ANALYST procedure are in the results section. URIC ACID STAT 07/01/2019 10:31 Results for this PM CYBER SECURITY ANALYST procedure are in the results section. LACTATE DEHYDROGENASE STAT 07/01/2019 10:31 Results for this PM CYBER SECURITY ANALYST procedure are in the results section. ALANINE AMINO STAT 07/01/2019 10:31 Results for this TRANSFERASE(SGPT PM CYBER SECURITY ANALYST procedure are in the results section. CREATININE STAT 07/01/2019 10:31 Results for this PM CYBER SECURITY ANALYST procedure are in the results section. SGOT (ASPARTATE AMINO STAT 07/01/2019 10:31 Results for this TRANSFER) PM CYBER SECURITY ANALYST procedure are in the results section. documented in this encounter Results Urinalysis (07/01/2019 10:32 PM CYBER SECURITY ANALYST) Pathologist [facility] APPEARANCE Clear Clear [facility] COLOR Yellow Yellow [facility] PH 6.0 4.8 - 8.0 [facility] SP GRAVITY 1.014 1.003 - 1.030 [facility] GLU U QUAL Normal Normal [facility] BLOOD 3+ (A) Negative [facility] KETONES Negative Negative [facility] PROTEIN 30 mg/dL (A) Negative [facility] UROBILIN Normal Normal [facility] BILIRUBIN Negative Negative [facility] NITRITE Negative Negative [facility] LEUK MARLON 250/uL (A) Negative [facility] RBC/HPF 102 (H) 0 - 3 HPF [facility] WBC/HPF 30 (H) 0 - 5 HPF [facility] BACTERIA Negative Negative [facility] MUCOUS Slight (A) Negative LPF [facility] SQ EPITH 2 <=2 HPF [facility] WBC CLUMPS <1 <=1 HPF [facility] Specimen Urine - URINE, CLEAN CATCH Performing Organization Address City/[facility] Phone Number [facility] CLIA: [id number], [address] [place] [address] [phone] [facility] Protein CREAT Ratio Urine Random (07/01/2019 10:32 PM CYBER SECURITY ANALYST) Pathologist [facility] T. PROT U 37 mg/dL [facility] CREAT U 119.1 mg/dL [facility] Protein/Creatinine 0.3 0.0 - 2.0 [facility] Ratio Urine Specimen Urine - URINE, CLEAN CATCH Performing Organization Address City/[facility] Phone Number [facility] CLIA: [id number], [address] [place] [address] [facility] CBC WITH DIFFERENTIAL (07/01/2019 10:31 PM CYBER SECURITY ANALYST) Pathologist [facility] WBC 9.98 4.30 - 11.10 [facility] 10*3/L SERVICES RBC 3.76 (L) 3.93 - 5.25 [facility] 10*6/L SERVICES HGB 12.9 11.6 - 15.0 [facility] g/dL SERVICES HCT 36.2 35.7 - 45.2 % [facility] MCV 96.3 (H) 80.6 - 95.5 fL [facility] MCH 34.3 (H) 25.9 - 32.8 pg [facility] MCHC 35.6 (H) 31.6 - 35.1 [facility] g/dL SERVICES RDW-SD 43.4 39.0 - 49.9 fL [facility] RDW-CV 12.3 12.0 - 15.5 % [facility] PLT 321 166 - 358 [facility] 10*3/L SERVICES MPV 9.0 (L) 9.5 - 12.9 fL [facility] NRBC/100 WBC 0.0 0.0 - 10.0 /100 [facility] WBCs SERVICES NRBC x10^3 <0.01 10*3/L [facility] GRAN MAT (NEUT) % 64.5 % [facility] IMM GRAN % 0.40 % [facility] LYMPH % 23.4 % [facility] MONO % 6.3 % [facility] EOS % 4.9 % [facility] BASO % 0.5 % [facility] GRAN MAT x10^3(ANC) 6.43 1.88 - 7.09 [facility] 10*3/uL SERVICES IMM GRAN x10^3 0.04 0.00 - 0.06 [facility] 10*3/uL SERVICES LYMPH x10^3 2.34 1.32 - 3.29 [facility] 10*3/uL SERVICES MONO x10^3 0.63 0.33 - 0.92 [facility] 10*3/uL SERVICES EOS x10^3 0.49 (H) 0.03 - 0.39 [facility] 10*3/uL SERVICES BASO x10^3 0.05 0.01 - 0.07 [facility] 10*3/uL SERVICES Specimen Blood - VENOUS Performing Organization Address City/State/Zipcode Phone Number [facility] CLIA: [id number], [address] [place] [address] Lactate Dehydrogenase (07/01/2019 10:31 PM CYBER SECURITY ANALYST) LDH 530 300 - 600 U/L [facility] Specimen Blood - VENOUS Performing Organization Address City/State/Zipcode Phone Number [facility] CLIA: [id number], [address] [place] [address] [facility] Alanine Amino Transferase (SGPT) (07/01/2019 10:31 PM CYBER SECURITY ANALYST) ALTv 24 5 - 35 U/L [facility] Specimen Blood - VENOUS Performing Organization Address City/[facility]/Zipcode Phone Number [facility] CLIA: [id number], [address] [place] [address] [phone] [facility] SGOT (Asparate Amino Transfer) (07/01/2019 10:31 PM CYBER SECURITY ANALYST) AST(SGOT) 28 13 - 40 U/L [facility] Specimen Blood - VENOUS Performing Organization Address [facility]/Zipcode Phone Number [facility] CLIA: [id number], [address] [place] [address] [phone] [facility] Serum Creatinine (07/01/2019 10:31 PM CYBER SECURITY ANALYST) CREATININE 0.97 0.50 - 1.04 [facility] mg/dL SERVICES eGFR Calculation 66.1 mL/min/1.73m2 [facility] (Non-) SERVICES eGFR Calculation 80.2 mL/min/1.73m2 [facility] () SERVICES Specimen Blood - VENOUS Narrative Performed At Association of Glomerular Filtration Rate (GFR) and Staging [facility] of Kidney Disease* + + [...] tests). Performing Organization Address City/State/Zipcode Phone Number [facility] CLIA: [id number], [address] [place], [place] [address] [facility] Uric Acid Serum (07/01/2019 10:31 PM CYBER SECURITY ANALYST) URIC ACID 5.1 2.9 - 6.0 mg/dL [facility] Specimen Blood - VENOUS Performing Organization Address City/State/Zipcode Phone Number [facility] CLIA: [id number], [address] [place] [address] [facility] documented in this encounter Visit Diagnoses Diagnosis Nonpurulent mastitis, - Primary documented in this encounter Insurance Payer Benefit Plan / Subscriber ID Effective Dates Phone Address Type Group [facility] xxxxxxxxx 2019-Presen Medicaid HEALTH PLAN - [employer] MANAGED MEDICAID (Home) [place] [address] documented as of this encounter"
[2019-08-23 14:48] LABS: Absolute Lymphocytes (CBC) 2.2 K/uL (0.7-4.9); Basophils % 0.7 % (0-1.3); Hematocrit 36.6 % (36.0-45.0); Lymphocytes % 26.9 % (15.3-44.8); MPV 7.1 fL (7.6-11.3); RBC Red Blood Cell Count 3.76 M/uL (3.86-4.86)
[2019-08-23 14:58] LABS: ALT/SGPT 18 U/L (12-78); AST/SGOT 17 U/L (15-37); Albumin 3.4 g/dL (3.4-5.0); Alkaline Phosphatase 74 U/L (45-117); BUN Blood Urea Nitrogen 12 mg/dL (7-18); Bicarbonate 27 mmol/L (21-32); Bilirubin Direct < 0.1 mg/dL (0-0.2); Bilirubin Total 0.2 mg/dL (0.2-1.0); Glucose Level 125 mg/dL (74-106); Lipase 128 U/L (73-393); Protein, Total 7.2 g/dL (6.4-8.2); Sodium Level 138 mmol/L (136-145)
[2019-08-23] MEDS ORDERED: NA CHLORIDE 0.9% 1,000 ML ONE (15:11)
--- NOTE | 2019-08-23 15:45 | RAD REPORT ---
EXAM DESCRIPTION: CT - Abdomen Pelvis W Contrast - 08/23/2019 3:20 pm CLINICAL HISTORY: Abdominal pain COMPARISON: none. TECHNIQUE: Computed axial tomography of the abdomen pelvis was obtained. 100 cc Isovue-300 was admin istered intravenously. Oral contrast was not requested which limits evaluation of bowel. All CT scans are performed using dose optimization technique as appropriate and may include automated exposure control or mA/KV adjustment according to patient size. FINDINGS: The liver, spleen, pancreas, adrenal and kidneys appear unremarkable. There is no evidence of diverticulitis. Normal appendix IMPRESSION: No acute abnormality is displayed.
--- NOTE | 2019-08-23 16:05 | EDPHYS ---
Physician Documentation [facility] Name: Samara Diego Age: 34 yrs Sex: Female : 1985 Arrival Date: 08/23/2019 Time: 14:18 Bed 19 Private MD: ED Physician Sammy Kaba HPI: 08/22 15:01 This 34 yrs old Female presents to ER via EMS with complaints of Abdominal jr8 Pain. 15:01 The patient presents with abdominal pain that is diffuse. Onset: The symptoms/episode jr8 began/occurred gradually, 2 day(s) ago. The symptoms do not radiate. Associated signs and symptoms: none. The symptoms are described as crampy, sharp. Modifying factors: The symptoms are alleviated by nothing, the symptoms are aggravated by nothing. Severity of pain: At its worst the pain was moderate in the emergency department the pain is unchanged. The patient has not experienced similar symptoms in the past. The patient has not recently seen a physician. Stated that since she gave via vaginal canal about 2 months ago. Has been having on/off constipation. Has not had any urge to have bowel movement in 8 days. Now having abdominal pain and still unable to have BM. Has been taking daily stool softer and tried rectal stimulant today without relief . 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 - Social history:: Smoking status: Patient reports the use of cigarette tobacco products, smokes one-half pack cigarettes per day. ROS: 15:01 Eyes: Negative for injury, pain, redness, and discharge, ENT: Negative for injury, jr8 pain, and discharge, Neck: Negative for injury, pain, and swelling, Cardiovascular: Negative for chest pain, palpitations, and edema, Respiratory: Negative for shortness of breath, cough, wheezing, and pleuritic chest pain, Back: Negative for injury and pain, MS/Extremity: Negative for injury and deformity, Skin: Negative for injury, rash, and discoloration, Neuro: Negative for headache, weakness, numbness, tingling, and seizure. 15:01 Abdomen/GI: Positive for abdominal pain, constipation, abdominal cramps, abdominal distension, Negative for nausea, vomiting, and diarrhea. Exam: 15:01 Eyes: Pupils equal round and reactive to light, extra-ocular motions intact. Lids and jr8 lashes normal. Conjunctiva and sclera are non-icteric and not injected. Cornea within normal limits. Periorbital areas with no swelling, redness, or edema. ENT: Nares patent. No nasal discharge, no septal abnormalities noted. Tympanic membranes are normal and external auditory canals are clear. Oropharynx with no redness, swelling, or masses, exudates, or evidence of obstruction, uvula midline. Mucous membranes moist. Neck: Trachea midline, no thyromegaly or masses palpated, and no cervical lymphadenopathy. Supple, full range of motion without nuchal rigidity, or vertebral point tenderness. No Meningismus. Cardiovascular: Regular rate and rhythm with a normal S1 and S2. No gallops, murmurs, or rubs. Normal PMI, no JVD. No pulse deficits. Respiratory: Lungs have equal breath sounds bilaterally, clear to auscultation and percussion. No rales, rhonchi or wheezes noted. No increased work of breathing, no retractions or nasal flaring. Back: No spinal tenderness. No costovertebral tenderness. Full range of motion. Skin: Warm, dry with normal turgor. Normal color with no rashes, no lesions, and no evidence of cellulitis. MS/ Extremity: Pulses equal, no cyanosis. Neurovascular intact. Full, normal range of motion. Neuro: Awake and alert, GCS 15, oriented to person, place, time, and situation. Cranial nerves II-XII grossly intact. Motor strength 5/5 in all extremities. Sensory grossly intact. Cerebellar exam normal. Normal gait. 15:01 Abdomen/GI: Inspection: abdomen appears normal, Bowel sounds: active, all quadrants, Palpation: soft, in all quadrants, mild abdominal tenderness, in the abdomen diffusely, mass, is not appreciated, rebound tenderness, is not appreciated, voluntary guarding, is not appreciated, involuntary guarding, is not appreciated, no appreciated organomegaly, Indicators: McBurney's point is not tender, Corbin's sign is negative, Rovsing's sign is negative, Liver: tenderness, is not appreciated. Vital Signs: 14:18 BP 165 / 92; Pulse 91; Resp 20; Temp 98.6(O); Pulse Ox 99% on R/A; Weight 68.04 kg (R); ca1 Height 5 ft. 5 in. (165.10 cm) (R); Pain 7/10; 15:10 BP 115 / 69; Pulse 64; Resp 17 S; Pulse Ox 97% on R/A; ca1 16:13 BP 111 / 62; Pulse 72; Resp 19 S; Pulse Ox 100% on R/A; ca1 14:18 Body Mass Index 24.96 (68.04 kg, 165.10 cm) ca1 MDM: 14:18 Patient medically screened. jr8 16:01 Data reviewed: vital signs, nurses notes, lab test result(s), radiologic studies, CT jr8 scan. Data interpreted: Pulse oximetry: on room air is 97 %. Interpretation: normal. Counseling: I had a detailed discussion with the patient and/or guardian regarding: the historical points, exam findings, and any diagnostic results supporting the discharge/admit diagnosis, lab results, radiology results, the need for outpatient follow up, a family practitioner, to return to the emergency department if symptoms worsen or persist or if there are any questions or concerns that arise at home. Response to treatment: the patient's symptoms have markedly improved after treatment, patient is well hydrated. ED course: Patient feeling better after fluids. Labs and CT without acute finding. Likely pain from constipation. Will start on Miralax. If worse to come back. Otherwise knows to f/u with PCP. 08/22 14:21 Order name: Basic Metabolic Panel; Complete Time: 15:04 8 08/22 14:21 Order name: CBC with Diff; Complete Time: 14:52 [facility] 08/22 14:21 Order name: Creatinine for Radiology; Complete Time: 15:06 08/22 14:21 Order name: Hepatic Function; Complete Time: 15:04 8 08/22 14:21 Order name: Lipase; Complete Time: 15:04 08/22 14:52 Order name: Urine Dipstick--Ancillary (enter results) bd 08/22 14:21 Order name: IV Saline Lock; Complete Time: 14:27 [facility] 08/22 14:21 Order name: Labs collected and sent; Complete Time: 14:27 8 08/22 14:21 Order name: Urine Test (obtain specimen); Complete Time: 14:43 8 08/22 14:21 Order name: Urine Dipstick-Ancillary (obtain specimen); Complete Time: 14:44 jr8 08/22 14:53 Order name: Urine --Ancillary (enter results) bd 08/22 15:04 Order name: CT Abd/Pelvis - IV Contrast Only; Complete Time: 15:48 8 Administered Medications: 15:09 Drug: NS 0.9% 1000 ml Route: IV; Rate: 1000 ml; Site: right antecubital; ca1 16:00 Follow up: Response: No adverse reaction; IV Status: Completed infusion js6 Disposition: 16:37 Co-signature as Attending Physician, Sammy Kaba DO I agree with the assessment and ms3 plan of care. Attestation: The patient's history, exam findings, diagnostics, and a summary of any interventions or procedures was reviewed in detail with Moses ELAINE. Disposition: 08/23/19 16:04 Discharged to Home. Impression: Constipation, Generalized abdominal pain. - Condition is Stable. - Discharge Instructions: Constipation, Adult. - Prescriptions for Miralax 17 gram/dose Oral - take 1 packet by ORAL route once daily dilute powder in 8 ounces of water or juice; 1 box. - Medication Reconciliation Form, Thank You Letter, Antibiotic Education, Prescription Opioid Use form. - Follow up: Private Physician; When: 1 week; Reason: Recheck today's complaints, Continuance of care, Re-evaluation by your physician. - Problem is new. - Symptoms have improved. Signatures: Dispatcher [employer] EDMoses Zazueta PA PA jr8 Raeann Hubbard RN Sammy Severino DO DO ms3 Mariana Granados js6 Corrections: (The following items were deleted from the chart) 16:33 16:04 08/23/2019 16:04 Discharged to Home. Impression: Constipation; Generalized js6 abdominal pain. Condition is Stable. Forms are Medication Reconciliation Form, Thank You Letter, Antibiotic Education, Prescription Opioid Use. Follow up: Private Physician; When: 1 week; Reason: Recheck today's complaints, Continuance of care, Re-evaluation by your physician. Problem is new. Symptoms have improved. jr8
--- NOTE | 2019-08-23 16:05 | ER ---
Nurse's Notes [facility] Name: Samara Diego Age: 34 yrs Sex: Female : 1985 Arrival Date: 08/23/2019 Time: 14:18 Bed 19 Private MD: Diagnosis: Constipation;Generalized abdominal pain Presentation: 08/22 14:18 Chief complaint: EMS states: Abdominal pain on the L lower side radiating to the ca1 middle. Constipation x 8 days. Last BM 9 days ago. Pt has recent , vaginal delivery 2 months ago. Pt has hx of hemorrhoids. Pt reports L leg edema. Pt is from [facility] for Cocaine use. BGL 96. VS stable. Coronavirus screen: Patient denies fever greater than 100.4F, cough, shortness of breath, or difficulty breathing. Proceed with normal triage process. Ebola Screen: Patient negative for fever greater than or equal to 101.5 degrees Fahrenheit, and additional compatible Ebola Virus Disease symptoms Patient denies exposure to infectious person. Patient denies travel to an Ebola-affected area in the 21 days before illness onset. No symptoms or risks identified at this time. Initial Sepsis Screen: Does the patient meet any 2 criteria? No. Patient's initial sepsis screen is negative. Does the patient have a suspected source of infection? No. Patient's initial sepsis screen is negative. Risk Assessment: Do you want to hurt yourself or someone else? Patient reports no desire to harm self or others. Onset of symptoms was August 23, 2019. Care prior to arrival: Glucose check: 96. 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 - Social history:: Smoking status: Patient reports the use of cigarette tobacco products, smokes one-half pack cigarettes per day. Screenin:35 Abuse screen: Denies threats or abuse. Denies injuries from another. Nutritional ca1 screening: No deficits noted. Tuberculosis screening: No symptoms or risk factors identified. Fall Risk IV access (20 points). Assessment: 14:35 General: Appears in no apparent distress. comfortable, Behavior is calm, cooperative, ca1 appropriate for age. Pain: Complains of pain in left lower quadrant Pain radiates to umbilical area Pain currently is 7 out of 10 on a pain scale. Pain began gradually, Is intermittent. Neuro: Level of Consciousness is awake, alert, obeys commands, Oriented to person, place, time, situation. Cardiovascular: Heart tones S1 S2 present Capillary refill < 3 seconds Patient's skin is warm and dry. Respiratory: Airway is patent Respiratory effort is even, unlabored, Respiratory pattern is regular, symmetrical, Breath sounds are clear bilaterally. GI: Abdomen is round non-distended, Bowel sounds present X 4 quads. Abd is soft X 4 quads Abdomen is tender to palpation in left lower quadrant Reports constipation, since 8 days ago. : No signs and/or symptoms were reported regarding the genitourinary system. EENT: No signs and/or symptoms were reported regarding the EENT system. Derm: Skin is intact, is healthy with good turgor, Skin is pink, warm \\T\\ dry. Musculoskeletal: Circulation, motion, and sensation intact. Capillary refill < 3 seconds. 15:10 Reassessment: Patient appears in no apparent distress at this time. No changes from ca1 previously documented assessment. Patient and/or family updated on plan of care and expected duration. Pain level reassessed. Patient is alert, oriented x 3, equal unlabored respirations, skin warm/dry/pink. 15:13 Reassessment: Pt to CT via wheelchair. ca1 16:13 Reassessment: Patient appears in no apparent distress at this time. Patient is alert, ca1 oriented x 3, equal unlabored respirations, skin warm/dry/pink. Vital Signs: 14:18 BP 165 / 92; Pulse 91; Resp 20; Temp 98.6(O); Pulse Ox 99% on R/A; Weight 68.04 kg (R); ca1 Height 5 ft. 5 in. (165.10 cm) (R); Pain 7/10; 15:10 BP 115 / 69; Pulse 64; Resp 17 S; Pulse Ox 97% on R/A; ca1 16:13 BP 111 / 62; Pulse 72; Resp 19 S; Pulse Ox 100% on R/A; ca1 14:18 Body Mass Index 24.96 (68.04 kg, 165.10 cm) ca1 ED Course: 14:18 Patient arrived in ED. ca1 14:18 Moses Mejia PA is PHCP. jr8 14:18 Sammy Kaba DO is Attending Physician. jr8 14:22 No provider procedures requiring assistance completed. Initial lab(s) drawn, by mn, ca1 sent to lab. Inserted saline lock: 20 gauge in right antecubital area, using aseptic technique. Blood collected. 14:27 Raeann Hubbard, RN is Primary Nurse. ca1 14:33 Triage completed. ca1 14:34 Arm band placed on right wrist. ca1 14:35 Patient has correct armband on for positive identification. Placed in gown. Bed in low ca1 position. Call light in reach. Side rails up X 1. Pulse ox on. NIBP on. Warm blanket given. 15:21 CT Abd/Pelvis - IV Contrast Only In Process Unspecified. EDMS 16:29 IV discontinued, intact, bleeding controlled, No redness/swelling at site. Pressure js6 dressing applied. Administered Medications: 15:09 Drug: NS 0.9% 1000 ml Route: IV; Rate: 1000 ml; Site: right antecubital; ca1 16:00 Follow up: Response: No adverse reaction; IV Status: Completed infusion js6 Outcome: 16:04 Discharge ordered by jr8 16:29 Discharged to pt states "will be picked up by the facility rep." Pt walked to the js6 lobby. 16:29 Condition: stable 16:29 Discharge instructions given to patient, Instructed on discharge instructions, follow up and referral plans. medication usage, Demonstrated understanding of instructions, follow-up care, medications, Prescriptions given X 1. 16:33 Patient left the ED. js6 Signatures: Dispatcher [employer] EDMS Moses Mejia PA PA jr8 Raeann Hubbard, MARY RN ca1 Mariana Granados js6
[2019-08-23 16:38] VITALS: TEMP 98.6
[2019-08-23 16:40] VITALS: BP 111/62; O2SAT 100
[2019-08-23 17:06] LABS: Urine Blood NEGATIVE (NEG); Urine Glucose NEGATIVE (NEG); Urine Protein NEGATIVE (NEG)
== END 2019-08-23 16:33 | disposition home or self-care (01) ==
LOC: ER 14:14
DX: K59.00 Constipation, unspecified (principal); F17.210 Nicotine dependence, cigarettes, uncomplicated; I10 Essential (primary) hypertension
CPT/HCPCS: 85025; 80048; 36415; 81025; 80076; 81003; 83690; 74177; Q9967; J7030; 96360; 99284